=== PATIENT | male | born 1965 ===

== ENCOUNTER 2018-01-16 09:31 | Emergency (ER) | payer OTHER ==
[2018-01-16 10:06] VITALS: BMI 25.2
--- NOTE | 2018-01-16 10:54 | RAD ---
HISTORY: cough x 2 months COMPARISON: No prior. TECHNIQUE: Chest PA and lateral FINDINGS: LUNGS: Vague opacity projects vertically over right mid to upper lung zone and is seen anteriorly on the lateral view. Right pleural parenchymal calcification/disease inferred. Probable concomitant left upper-outer pleural parenchymal pathology also suggested. PLEURA: No significant pleural effusion identified. No pneumothorax apparent. CARDIOVASCULAR: Normal. OSSEOUS STRUCTURES: No significant abnormalities. VISUALIZED UPPER ABDOMEN: Normal. OTHER FINDINGS: None. IMPRESSION: Pleural-parenchymal pathology -as above. Consider CT of the chest for further evaluation would initially due without IV contrast - calcified pleural disease suspect
[2018-01-16 11:50] LABS: BASO # 0.1 K/uL (0.0-0.2); BASO % 0.8 % (0.0-2.0); EOS # 0.2 K/uL (0.0-0.7); EOS % 2.6 % (0.0-4.0); HEMOGLOBIN 9.6 g/dL (12.0-18.0); LYMPH # 2.1 K/uL (1.0-4.3); LYMPH % 30.9 % (20.0-40.0); MEAN CELL VOLUME 87.1 fl (80.0-94.0); MEAN CORPUSCULAR HEMOGLOBIN 29.3 pg (27.0-31.0); MEAN CORPUSCULAR HGB CONC 33.7 g/dL (33.0-37.0); MEAN PLATELET VOLUME 8.5 fl (7.2-11.7); MONO # 0.6 K/uL (0.0-0.8); MONO % 9.2 % (0.0-10.0); NEUT # 3.8 K/uL (1.8-7.0); NEUT % 56.5 % (50.0-75.0); RBC 3.27 Mil/uL (4.40-5.90); WHITE BLOOD COUNT 6.8 K/uL (4.8-10.8)
[2018-01-16 12:07] LABS: ALB/GLOB RATIO 0.8 (1.0-2.1); ALBUMIN 3.7 g/dL (3.5-5.0); ALT/SGPT 23 U/L (21-72); AST/SGOT 29 U/L (17-59); BLOOD UREA NITROGEN 12 mg/dl (9-20); CALCIUM 10.1 mg/dL (8.4-10.2); GFR AFRICAN-AMERICAN > 60; GFR NON-AFRICAN AMERICAN > 60; LIPASE 76 U/L (23-300)
--- NOTE | 2018-01-16 12:45 | ED PDOC ---
HPI: Abdomen Time Seen by Provider: 01/16/18 10:19 Chief Complaint (Nursing): Abdominal Pain Chief Complaint (Provider): Epigastric discomfort x 2 weeks History Per: Patient History/Exam Limitations: no limitations Onset/Duration Of Symptoms: Days Outside of [place] travel?: No Current Symptoms Are (Timing): Still Present Additional Complaint(s): 52 yo male with history of acute pancreatitis, HTN, DM and high cholesterol present for evaluation of epigastric pain for 2 weeks. Pt was admitted for acute pancreatitis at the end of October. Pt states that he is able to eat and drinking without N/V/D ut has no appetite. PT states he was in [place] but lives near here so he came to [place] for evaluation. PT states he does not have a PMD. PT also reports cough x 2 months, non-productive. Past Medical History Reviewed: Historical Data, Nursing Documentation, Vital Signs Vital Signs: Last Vital Signs Temp 97.9 F 01/16/18 10:06 Pulse 57 L 01/16/18 10:06 Resp 17 01/16/18 10:06 BP 102/68 01/16/18 10:06 Pulse Ox 96 01/16/18 13:44 - Medical History PMH: Diabetes, HTN, Pancreatitis - Surgical History Surgical History: No Surg Hx - Family History Family History: States: No Known Family Hx - Home Medications Home Medications: Ambulatory Orders Medication Instructions Recorded Ciprofloxacin [Cipro] 500 mg PO BID #10 tab 01/16/18 - Allergies Allergies/Adverse Reactions: Allergies Allergy/AdvReac Type Severity Reaction Status Date / Time No Known Allergies Allergy Verified 01/16/18 10:06 Review of Systems ROS Statement: Except As Marked, All Systems Reviewed And Found Negative Constitutional: Positive for: Fever (Intermittent subjective fever x 1 month ). Negative for: Chills Gastrointestinal: Positive for: Abdominal Pain. Negative for: Nausea, Vomiting , Diarrhea Neurological: Negative for: Weakness, Numbness Physical Exam - Reviewed Nursing Documentation Reviewed: Yes Vital Signs Reviewed: Yes - Physical Exam Appears: Positive for: Well, Non-toxic, No Acute Distress Head Exam: Positive for: ATRAUMATIC, NORMAL INSPECTION, NORMOCEPHALIC Skin: Positive for: Normal Color, Warm, DRY Eye Exam: Positive for: Normal appearance ENT: Positive for: Normal ENT Inspection Neck: Positive for: Normal, Painless ROM Cardiovascular/Chest: Positive for: Regular Rate, Rhythm Respiratory: Positive for: CNT, Normal Breath Sounds Gastrointestinal/Abdominal: Positive for: Normal Exam, Soft, Tenderness (Mild epigastric tenderness ). Negative for: Mass, Distended, Guarding, Rebound Back: Positive for: Normal Inspection Extremity: Positive for: Normal ROM Neurologic/Psych: Positive for: Alert, Oriented - Laboratory Results Result Diagrams: 01/16/18 11:31 01/16/18 11:31 - ECG O2 Sat by Pulse Oximetry: 96 Medical Decision Making Medical Decision Making: Urine (+) nitrites and leuks in urine. Blood cultures and IV antibiotics ordered. Disposition - Clinical Impression Clinical Impression: UTI (urinary tract infection) - Disposition Referrals: [facility] [Outside] Disposition: Routine/Home Disposition Time: 16:17 Condition: STABLE Prescriptions: Ciprofloxacin [Cipro] 500 mg PO BID #10 tab Instructions: Urinary Tract Infections in Adults Forms: [facility] (German)
[2018-01-16] MEDS ORDERED: cefTRIAXone (Rocephin) 1 gm Inj ONE (13:26)
[2018-01-16 13:47] LABS: SQUAMOUS EPITHIAL < 1 /hpf (0-5); URINE BACTERIA MOD (<OCC); URINE BILIRUBIN NEGATIVE (NEGATIVE); URINE BLOOD NEGATIVE (NEGATIVE); URINE CLARITY SLIGHTY-CLOUDY (Clear); URINE COLOR AMBER (YELLOW); URINE GLUCOSE (UA) NEG (Normal); URINE LEUKOCYTE ESTERASE MOD Leu/uL (Negative); URINE PROTEIN 30 mg/dL (NEGATIVE); URINE URIC ACID CRYSTALS RARE /hpf (<OCC); URINE UROBILINOGEN 0.2-1.0 mg/dL (0.2-1.0)
--- NOTE | 2018-01-16 15:05 | CT ---
PROCEDURE: CT Chest without contrast HISTORY: abdnormal CXR COMPARISON: None. TECHNIQUE: Contiguous axial images were obtained through the chest without intravenous contrast enhancement. Sagittal and coronal reconstructions were performed. Radiation dose (DLP): 256 mGy-cm. This CT exam was performed using one or more of the following dose reduction techniques: Automated exposure control, adjustment of the mA and/or kV according to patient size, and/or use of iterative reconstruction technique. FINDINGS: LUNGS: Bordering posterior inferior left-sided extensive calcified pleural plaque there is nodular subpleural 2.6 x 0.9 cm soft tissue opacity in this may represent scar/prior inflammatory etiology. Neoplastic etiology not excluded. Continued follow-up is advised. The patient has any outside CT studies ease to be helpful in assessing stability. MEDIASTINUM: Unremarkable thoracic aorta. No aneurysm. Normal sized heart. Main pulmonary artery unremarkable. No vascular congestion. No enlarged lymphadenopathy. 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 Left sub pleural based fibrotic like scarring with nodularity - the nodularity is referenced above is indeterminate and continued surveillance and or preferably comparison with prior studies is recommended to assess stability BONES: No fracture. No destructive lesion. UPPER ABDOMEN: Sliding hiatal hernia OTHER FINDINGS: None. IMPRESSION: Chest x-ray findings consistent with calcified pleural plaques -asbestosis exposure inferred. Left posterior lateral scarring/fibrosis also suggested where concomitant nodular component noted. This nodular component is indeterminate- prior inflammatory base is 1 consideration. Neoplastic bases not excluded. Continued surveillance is recommended. As detailed above
--- NOTE | 2018-01-16 16:07 | CARD ---
APPROVED REPORT EKG Measurement Heart [id number] <Conclusion> Sinus bradycardia Otherwise normal ECG
[2018-01-16 16:43] VITALS: BP 117/72; PULSE 72; RESP 18; TEMP 98.5; O2SAT 100
== END 2018-01-16 16:44 | disposition home or self-care (01) ==
LOC: H.ER 09:31
DX: N39.0 Urinary tract infection, site not specified (principal); E11.9 Type 2 diabetes mellitus without complications; I10 Essential (primary) hypertension; K85.90 Acute pancreatitis without necrosis or infection, unspecified
CPT/HCPCS: 71046; 71250; 80053; 81003; 83690; 84484; 85025; 87040; 87086; 87181; 93005; 96365; 99284; J0696

== ENCOUNTER 2018-02-12 12:38 | Inpatient (IN) | payer OTHER, SELFPAY ==
[2018-02-12 12:39] VITALS: BMI 25.2
[2018-02-12] MEDS ORDERED: Sodium Chloride 0.9% 1,000 ML IV STA (12:53)
--- NOTE | 2018-02-12 12:57 | ED PDOC ---
Syncope/Near Syncope/Dizziness Time Seen by Provider: 02/12/18 12:52 Chief Complaint (Nursing): Weakness/Neurological Deficit History Per: Patient, Other Onset/Duration Of Symptoms: Unknown Current Symptoms Are (Timing): Still Present Fall Associated With With Symptoms: No Severity: Moderate Additional Complaint(s): Referred from [facility] for generalized weakness. Found to have anemia on outpt testing. Also found to have abnormal CXR with concern for TB with positive Quantiferon test. Pt is from [facility] but has no other risk factors for TB. Denies night sweats, hemoptysis or sudden weight loss. Past Medical History Vital Signs: Last Vital Signs Temp 98.3 F 02/12/18 12:48 Pulse 68 02/12/18 12:48 Resp 16 02/12/18 12:48 BP 109/71 02/12/18 12:48 Pulse Ox 100 02/12/18 12:48 - Medical History PMH: Diabetes, HTN, Pancreatitis - Family History Family History: States: Unknown Family Hx - Home Medications Home Medications: Ambulatory Orders Medication Instructions Recorded Aspirin [Ecotrin] 81 mg PO DAILY 02/12/18 Atorvastatin [Lipitor] 40 mg PO HS 02/12/18 Gemfibrozil [Gemfibrozil] 600 mg PO BID 02/12/18 Insulin Glargine, Recombina 10 unit SC HS 02/12/18 [Lantus] Insulin Lispro [humALOG] 6 unit SC ACTID 02/12/18 Lipase/Protease/Amylase [Creon Dr 1 cap PO TID 02/12/18 6,000 Units Capsule] Metoprolol Tartrate [Lopressor] 50 mg PO Q12 02/12/18 Pantoprazole Sodium [Protonix] 40 mg PO DAILY 02/12/18 - Allergies Allergies/Adverse Reactions: Allergies Allergy/AdvReac Type Severity Reaction Status Date / Time No Known Allergies Allergy Verified 02/12/18 12:48 Review of Systems ROS Statement: Except As Marked, All Systems Reviewed And Found Negative Constitutional: Positive for: Weakness Physical Exam - Reviewed Nursing Documentation Reviewed: Yes Vital Signs Reviewed: Yes - Physical Exam Appears: Positive for: Non-toxic, No Acute Distress Head Exam: Positive for: ATRAUMATIC, NORMAL INSPECTION, NORMOCEPHALIC Skin: Positive for: Normal Color, Warm, DRY Eye Exam: Positive for: EOMI, Normal appearance, PERRL ENT: Positive for: Normal ENT Inspection Neck: Positive for: Normal, Painless ROM Cardiovascular/Chest: Positive for: Regular Rate, Rhythm Respiratory: Positive for: CNT, Normal Breath Sounds Gastrointestinal/Abdominal: Positive for: Normal Exam, Soft Back: Positive for: Normal Inspection Extremity: Positive for: Normal ROM Neurologic/Psych: Positive for: Alert, Oriented. Negative for: Motor/Sensory Deficits - ECG O2 Sat by Pulse Oximetry: 100 Disposition - Clinical Impression Clinical Impression: Anemia - Patient ED Disposition Is Patient to be Admitted: Yes - Disposition Disposition Time: 14:23 Condition: FAIR - Pt Status Changed To: Hospital Disposition Of: Inpatient - Admit Certification Admit to Inpatient:: After my assessment, the patient will require hospitalization for at least two midnights. This is because of the severity of symptoms shown, intensity of services needed, and/or the medical risk in this patient being treated as an outpatient. - POA Present On Arrival: None
[2018-02-12] MEDS ORDERED: Sodium Chloride 3% for Inhalation 4 ML VIAL.NEB IH PRN (13:42)
[2018-02-12] MEDS ORDERED: Iohexol 240 (50 ml) PO ONE (14:21)
[2018-02-12] MEDS ORDERED: Iohexol 240 (50 ml) ONE (14:29)
[2018-02-12 14:38] LABS: BASO % 0.2 % (0.0-2.0); EOS # 0.2 K/uL (0.0-0.7); EOS % 2.4 % (0.0-4.0); HEMOGLOBIN 9.6 g/dL (12.0-18.0); LYMPH # 1.4 K/uL (1.0-4.3); LYMPH % 19.9 % (20.0-40.0); MEAN CELL VOLUME 86.4 fl (80.0-94.0); MEAN CORPUSCULAR HEMOGLOBIN 28.6 pg (27.0-31.0); MEAN CORPUSCULAR HGB CONC 33.1 g/dL (33.0-37.0); MEAN PLATELET VOLUME 9.1 fl (7.2-11.7); MONO # 0.6 K/uL (0.0-0.8); MONO % 8.4 % (0.0-10.0); NEUT # 4.9 K/uL (1.8-7.0); NEUT % 69.1 % (50.0-75.0); NRBC % 0.1 % (0.0-0.0); RBC 3.35 Mil/uL (4.40-5.90); RED CELL DISTRIBUTION WIDTH 14.1 % (11.5-14.5)
--- NOTE | 2018-02-12 14:54 | CARD ---
APPROVED REPORT EKG Measurement Heart [id number] <Conclusion> Normal sinus rhythm Normal ECG
[2018-02-12 15:07] LABS: ALB/GLOB RATIO 0.9 (1.0-2.1); ALBUMIN 3.9 g/dL (3.5-5.0); ALT/SGPT 16 U/L (21-72); AST/SGOT 19 U/L (17-59); BLOOD UREA NITROGEN 16 mg/dl (9-20); GFR AFRICAN-AMERICAN > 60; GFR NON-AFRICAN AMERICAN > 60
--- NOTE | 2018-02-12 16:27 | RAD ---
HISTORY: r/o TB COMPARISON: 01/16/2018 two-view chest. 01/16/2018 CT thorax TECHNIQUE: Chest PA and lateral FINDINGS: LUNGS: No active pulmonary disease. PLEURA: No significant pleural effusion identified. No pneumothorax apparent. CARDIOVASCULAR: No radiographic findings to suggest acute or significant cardiovascular disease. OSSEOUS STRUCTURES: No significant abnormalities. VISUALIZED UPPER ABDOMEN: Normal. OTHER FINDINGS: None. IMPRESSION: No active disease. No evidence of primary or reactivation granulomatous disease. No significant interval change compared to the prior examination(s).
--- NOTE | 2018-02-12 16:28 | CP.PCM.HP ---
History of Present Illness - History of Present Illness History of Present Illness: cc: weakness and I don't have appetite. HPI: The patient is a 52 yo male with PMH of HTN, DM type 2 on insulin, Hyperlipidemia, Pancreatitis. The patient presents to the ED referred by [facility], where he has medical follow for his medical chronic conditions, the patient states he has been feeling very weak for the past approximately 2 months and went to the clinic where he had a CXR done concerning for possible TB, positive Quantiferon test and was found to have anemia. The patient states he was hospitalized in October in [facility] for a month, but he is a poor historian regarding that hospitalization and is unclear of the reason, states that he was at the hospital that time because he could no walk. He has been feeling weak for more than 2 months, c/o loss of Wt of approximately 60Lb in 2 to 3 months, also positive for occasional night sweats, poor appetite and dry cough some days , denies dyspnea or hemoptysis. The patient also c/o intermittent, unspecific diffuse mild abdominal, denies N/V/D, dysuria or urinary frequency. -PMD: [facility] -PMHx: DM, Pancreatitis, HTN, Hyperlipidemia. -Allergies: NKDA -Social Hx: Former smoker quit 20 years ago, alcohol (tequila) on weekends and states he has no drunk in 8 mo, mar[place] 20 years ago -Meds: Norvasc 5 po qd, Aspirin 81 qd, Atorvastatin 40 mg po qd, Genfibrozil 600 qd, Lispro insulin ss, Lantus-no taking, Metorprolol 25 po qd, Creon 6000/ 190 po q6h, Protonix 40 mg po qd. -FMHx: unknown to pt -PSx: None -Next of kin: Alejandra Apple [phone] -Code status: full code ED course: VS: BP 109/71, HR 68, Temp 98.3, RR 16, O2SAT RA 100% Labs: HIV test neg, CBC wbc 7.0, h/h 9.6/29, plt 175, CHem bs 128, BUN 16 creat 0.9 Imaging: CXR, Abdomen/pelvis CT with PO contrast Present on Admission - Present on Admission Any Indicators Present on Admission: No Review of Systems - Constitutional Constitutional: As Per HPI - EENT Eyes: As Per HPI Ears: As Per HPI Nose/Mouth/Throat: absent: Nasal Congestion, Nasal Discharge, Sinus Pain - Cardiovascular Cardiovascular: absent: Chest Pain, Dyspnea, Edema, Orthopnea, Palpitations - Respiratory Respiratory: As Per HPI - Gastrointestinal Gastrointestinal: As Per HPI - Genitourinary Genitourinary: As Per HPI - Musculoskeletal Musculoskeletal: Muscle Weakness, Neck Pain Additional comments: C/o neck pain in the past due to an accident while in the - Integumentary Integumentary: As Per HPI - Psychiatric Psychiatric: As Per HPI - Endocrine Endocrine: As Per HPI - Hematologic/Lymphatic Hematologic: As Per HPI Past Patient History - Past Social History Smoking Status: Never Smoked - CARDIAC Hx Hypertension: Yes - GASTROINTESTINAL Hx Pancreatitis: Yes - PSYCHIATRIC Hx Substance Use: No Meds Allergies/Adverse Reactions: Allergies Allergy/AdvReac Type Severity Reaction Status Date / Time No Known Allergies Allergy Verified 02/12/18 12:48 Physical Exam - Constitutional Appears: No Acute Distress - Head Exam Head Exam: NORMOCEPHALIC - Eye Exam Eye Exam: EOMI, PERRL - ENT Exam ENT Exam: Mucous Membranes Moist - Neck Exam Neck exam: Positive for: Full Rom. Negative for: Lymphadenopathy - Respiratory Exam Respiratory Exam: Clear to Auscultation Bilateral. absent: Chest Wall Tenderness, Rales, Rhonchi, Wheezes - Cardiovascular Exam Cardiovascular Exam: REGULAR RHYTHM, +S1, +S2. absent: JVD - GI/Abdominal Exam GI & Abdominal Exam: Normal Bowel Sounds, Soft. absent: Organomegaly Additional comments: 1 cm Scar noted on the left lower flank - Extremities Exam Extremities exam: Positive for: full ROM, pedal pulses present. Negative for: pedal edema, tenderness - Neurological Exam Neurological exam: Abnormal Gait, Alert, Oriented x3 Additional comments: Patient uses a cane to ambulate due to weakness Strength 3/5 in all 4 extremities - Psychiatric Exam Psychiatric exam: Normal Affect, Normal Mood - Skin Skin Exam: Normal Color, Warm Results - Vital Signs Recent Vital Signs: Last Vital Signs Temp 98.3 F 02/12/18 12:48 Pulse 68 02/12/18 12:48 Resp 16 02/12/18 12:48 BP 109/71 02/12/18 12:48 Pulse Ox 100 02/12/18 14:23 - Labs Result Diagrams: 02/12/18 14:30 02/12/18 14:30 Labs: Laboratory Results - last 24 hr 02/12/18 02/12/18 14:30 14:30 WBC 7.0 RBC 3.35 L Hgb 9.6 L Hct 29.0 L MCV 86.4 MCH 28.6 MCHC 33.1 RDW 14.1 Plt Count 175 MPV 9.1 Neut % (Auto) 69.1 Lymph % (Auto) 19.9 L Eaton % (Auto) 8.4 Eos % (Auto) 2.4 Baso % (Auto) 0.2 Neut # (Auto) 4.9 Lymph # (Auto) 1.4 Eaton # (Auto) 0.6 Eos # (Auto) 0.2 Baso # (Auto) 0.0 Sodium 141 Potassium 4.3 Chloride 106 Carbon Dioxide 25 Anion Gap 14 BUN 16 Creatinine 0.9 Est GFR ( Amer) > 60 Est GFR (Non-Af Amer) > 60 Random Glucose 128 H Calcium 10.0 Total Bilirubin 0.3 AST 19 ALT 16 L D Alkaline Phosphatase 95 Total Protein 8.5 H Albumin 3.9 Globulin 4.5 H Albumin/Globulin Ratio 0.9 L Assessment & Plan - Assessment and Plan (Free Text) Assessment: 52 yo male with PMH of DM type 2 on insulin, controlled HTN, HLD, and Pancreatitis, with new Hx of failure to thrive for more than 2 months, generalized weakness, Wt loss according to pt report of 60 pounds in 2 to 3 months, also anemia recently diagnosed at [facility] with CXR suggestive of possible TB and Pos Quantiferon Test. Decision is made to admit to the hospital for isolation of possible active TB and tx, eval of anemia, rule out possible malignancy. Plan: Possible TB -Respiratory airborne isolation -AFB x 3 -Sputum culture -CXR pending results Chronic Anemia -Hb 9.6 -anemia work-up, ferritin, TIBC, Serum irom, B12, folate, Sed rate -RPR DM type2 -Diabetic diet -Insulin Lispro SS -Atorvastin 40 po qd HLD -Atorvastatin -GEnfibrozil 600 po qd -Heart healthy Diet Hx of Chronic Pancreatitis -Creon 6000/09296 po with meals -lipase, amylase -pending Ct abdomen results HTN -Metoprolol 25 po qd -Aspirin 81 mg po qd -Heart healthy diet
[2018-02-12] MEDS ORDERED: Iohexol 300 100 ML IJ ONE (16:29)
[2018-02-12] MEDS ORDERED: Sodium Chloride 0.9% 100 ML ONE (16:29)
[2018-02-12] MEDS ORDERED: Glucagon Recombinant 1 mg Inj IM PRN (17:07)
[2018-02-12] MEDS ORDERED: Dextrose 50% SYRINGE Inj (50 ml) IV PRN (17:07)
--- NOTE | 2018-02-12 17:20 | CT ---
PROCEDURE: CT Abdomen and Pelvis with contrast HISTORY: Abdominal pain and anemia COMPARISON: None. TECHNIQUE: Contrast dose: 90 cc Omnipaque 300 Radiation dose: Total exam DLP = 489.62 mGy-cm. This CT exam was performed using one or more of the following dose reduction techniques: Automated exposure control, adjustment of the mA and/or kV according to patient size, and/or use of iterative reconstruction technique. FINDINGS: LOWER THORAX: Re- demonstration of pleural plaques, calcified indicative of prior asbestos exposure. These are seen on prior CT of the thorax 01/16/2018. Re- demonstration LIVER: Unremarkable. No gross lesion or ductal dilatation. GALLBLADDER AND BILE DUCTS: Unremarkable. PANCREAS: Cystic mass contiguous with the body and tail of the pancreas measuring 4.2 x 8.9 cm. Mean Hounsfield unit values vary between 35 and 55. In retrospect this was seen although incompletely visualized on the prior CT of the thorax including upper abdomen. Adjacent focal thickening of the wall of the stomach with possible mucosal/submucosal mass. Mean Hounsfield SPLEEN: Splenomegaly. Orthogonal measurements 11.4 x 16.8 x 5.4 cm. ADRENALS: Unremarkable. No mass. KIDNEYS AND URETERS: Unremarkable. No hydronephrosis. No solid mass. VASCULATURE: Unremarkable. No aortic aneurysm. BOWEL: Acute inflammatory changes affecting the distal descending colon and sigmoid with sparing of the rectum. The inflammatory changes in the sigmoid colon extending to the inguinal canal although there is no evidence of incarceration. APPENDIX: Normal appendix. PERITONEUM: Unremarkable. No free fluid. No free air. LYMPH NODES: Unremarkable. No enlarged lymph nodes. BLADDER: Unremarkable. REPRODUCTIVE: Unremarkable. BONES: No acute fracture. OTHER FINDINGS: Cystic mass, perinephric fluid collection interposed between the inferior aspect of the right kidney common the psoas muscle can't cecum. This measures 2.9 x 4.7 cm. Mean Hounsfield unit values vary between 26 and 39. None. IMPRESSION: 1. Acute sigmoid diverticulitis. The affected segment also includes the distal descending colon. Portions of the inflammatory process from the sigmoid extending into the left inguinal canal. 2. Well-circumscribed fluid/soft tissue mass likely emanating from the distal body and tail of the pancreas contiguous with the splenic vein. 3. An additional low-attenuation area in the left upper quadrant is either invading the stomach or originating from the stomach. 4. Retroperitoneal fluid collections/soft tissue mass adjacent to the inferior aspect of the right kidney. These fluid collections may represent well-formed pseudocyst. There is no compelling evidence for acute or necrotizing pancreatitis.
[2018-02-12 18:15] LABS: IRON 34 ug/dL (49-181)
[2018-02-12 18:24] LABS: % IRON SATURATION 13 % (20-55); TOTAL IRON BINDING CAPACITY 263 ug/dL (250-450)
[2018-02-12] MEDS ORDERED: metroNIDAZOLE 500mg/100ml NS 100 ML IVPB SCH (18:45)
[2018-02-12] MEDS ORDERED: Ciprofloxacin 400mg/200ml D5W 400 MG/200 ML BAG IVPB ONE (21:10)
[2018-02-12] MEDS: Ciprofloxacin 400mg/200ml D5W 400 MG/200 ML BAG IVPB SCH (21:17)
[2018-02-12] MEDS: Insulin Lispro (humaLOG) 100 Units/ml Inj SC SCH (23:42)
[2018-02-12] MEDS: Insulin Detemir 100 Units/ml Inj SC SCH (23:53)
[2018-02-13 01:57] LABS: FOLATE 15.1 ng/mL
[2018-02-13] MEDS: Insulin Lispro (humaLOG) 100 Units/ml Inj SC SCH ×7 (06:51→23:04)
[2018-02-13] MEDS ORDERED: Chlorhexidine Gluconate 1 APPL/PKT TP ONE (07:13)
--- NOTE | 2018-02-13 07:57 | CP.PCM.CON ---
<Shayna Angeles - Last Filed: 02/13/18 15:03> History of Present Illness - History of Present Illness History of Present Illness: Initial PGY5 GI Consult Note Brandan Lemon is a 52 yo male with PMH of HTN, DM type 2 on insulin, Hyperlipidemia , Pancreatitis? who presented to the ED referred by [facility] for his medical chronic conditions including weakness weakness, fatigue and weightloss. Pt is a poor historian. He notes that for the past 2-3 months is has been progressively weak. He went to the clinic where he had a CXR done concerning for possible TB. He also had a positive Quantiferon test. His CBC revealed a hgb of 9.6. The patient states he was hospitalized in October in [place] for a month, but he is a poor historian regarding that hospitalization and is unclear of the reason. He notes that he was in the hospital for 40days ad as a result was severely debilitated. He notes a 60lb weight loss during this period. He admits to intermittent rectal bleeding, associated with him straining and having hard stool. he notes that the blood is usually outside of the stool and upon wiping. He denies any NSAID use. Denies any nausea, vomiting, diarrhea, hematachezia, or melena. Denies any prior colonoscopy or endoscopy. CT Abd revealed a pancreatic mass in the body and tail with apparent invasion into the splenic vein, acute sigmoid diverticulitis, possible pseudocyst. PMHx: DM, Pancreatitis?, HTN, Hyperlipidemia. Social Hx: Former smoker quit 20 years ago, alcohol (tequila) on weekends and states he has no drunk in 8 mo, marihuana 20 years ago FMHx: unknown to pt PSx: None ROS: 12 point ROS conducted, neg other than above Past Patient History - Past Social History Smoking Status: Former Smoker - CARDIAC Hx Cardiac Disorders: Yes Hx Hypercholesterolemia: Yes Hx Hypertension: Yes - PULMONARY Hx Respiratory Disorders: No - NEUROLOGICAL Hx Neurological Disorder: No - HEENT Hx HEENT Problems: No - RENAL Hx Chronic Kidney Disease: No - ENDOCRINE/METABOLIC Hx Endocrine Disorders: Yes Hx Diabetes Mellitus Type 2: Yes - HEMATOLOGICAL/ONCOLOGICAL Hx Blood Disorders: (pancreatitis) - INTEGUMENTARY Hx Dermatological Problems: No - MUSCULOSKELETAL/RHEUMATOLOGICAL Hx Falls: No - GASTROINTESTINAL Hx Pancreatitis: Yes - GENITOURINARY/GYNECOLOGICAL Hx Genitourinary Disorders: No - PSYCHIATRIC Hx Substance Use: No - ANESTHESIA Hx Anesthesia: No Meds Allergies/Adverse Reactions: Allergies Allergy/AdvReac Type Severity Reaction Status Date / Time No Known Allergies Allergy Verified 02/12/18 12:48 - Medications Medications: Current Medications Amylase (Pancrease 23330 U-5000 U-74073 U) 5,000 unit PO TID [facility] Aspirin (Ecotrin) 81 mg PO DAILY [facility] Atorvastatin Calcium (Lipitor) 40 mg PO HS [facility] Dextrose (Dextrose 50% Inj) 0 ml IV STAT PRN; Protocol PRN Reason: Hypoglycemia Protocol Dextrose (Glutose 15) 0 gm PO ONCE PRN; Protocol PRN Reason: Hypoglycemia Protocol Gemfibrozil (Lopid) 600 mg PO BID [facility] Glucagon (Glucagen Diagnostic Kit) 0 mg IM STAT PRN; Protocol PRN Reason: Hypoglycemia Protocol Ciprofloxacin (Cipro 400mg/200ml Dsw) 400 mg in 200 mls @ 200 mls/hr IVPB Q12 [facility] PRN Reason: Protocol Last Admin: 02/12/18 21:17 Dose: 200 mls/hr Dextrose/Sodium Chloride (Dextrose 5%-0.45% Ns 500 Ml) 1,000 mls @ 100 mls/hr IV .Q10H [facility] Last Admin: 02/13/18 00:19 Dose: 100 mls/hr Insulin Detemir (Levemir) 10 units SC HS [facility] Last Admin: 02/12/18 23:53 Dose: 10 units Insulin Human Lispro (Humalog) 6 units SC ACTID [facility] Insulin Human Lispro (Humalog) 0 units SC ACHS [facility] PRN Reason: Protocol Last Admin: 02/13/18 06:51 Dose: Not Given Metoprolol Tartrate (Lopressor) 50 mg PO Q12 [facility] Last Admin: 02/12/18 21:16 Dose: 50 mg Metronidazole (Flagyl) 500 mg PO Q8 [facility] Last Admin: 02/13/18 01:49 Dose: 500 mg Ondansetron HCl (Zofran Inj) 4 mg IVP Q6 PRN PRN Reason: Nausea/Vomiting Pantoprazole Sodium (Protonix Ec Tab) 40 mg PO DAILY [facility] Physical Exam - Constitutional Appears: Well, No Acute Distress - Head Exam Head Exam: ATRAUMATIC, NORMOCEPHALIC - Eye Exam Eye Exam: Normal appearance - ENT Exam ENT Exam: Mucous Membranes Moist - Neck Exam Neck exam: Positive for: Normal Inspection - Respiratory Exam Respiratory Exam: Clear to Auscultation Bilateral, NORMAL BREATHING PATTERN. absent: Rales, Rhonchi, Wheezes, Respiratory Distress - Cardiovascular Exam Cardiovascular Exam: REGULAR RHYTHM, +S1, +S2 - GI/Abdominal Exam GI & Abdominal Exam: Normal Bowel Sounds, Soft. absent: Distended, Firm, Guarding, Organomegaly, Rebound, Rigid, Tenderness - Rectal Exam Rectal Exam: absent: Black Stool, Bloody Stool Additional comments: ext skin tag, old decub scar (healed), brown stool in rectal vault - Extremities Exam Extremities exam: Negative for: joint swelling, pedal edema - Neurological Exam Neurological exam: Alert, Oriented x3 - Psychiatric Exam Psychiatric exam: Normal Affect, Normal Mood - Skin Skin Exam: Dry, Intact, Normal Color, Warm Results - Vital Signs Recent Vital Signs: Last Vital Signs Temp 97.7 F 02/13/18 05:00 Pulse 57 L 02/13/18 05:00 Resp 20 02/13/18 05:00 BP 103/66 02/13/18 05:00 Pulse Ox 99 02/13/18 05:00 - Labs Result Diagrams: 02/12/18 14:30 02/12/18 14:30 Labs: Laboratory Results - last 24 hr 02/12/18 02/12/18 02/12/18 14:30 14:30 17:30 WBC 7.0 RBC 3.35 L Hgb 9.6 L Hct 29.0 L MCV 86.4 MCH 28.6 MCHC 33.1 RDW 14.1 Plt Count 175 MPV 9.1 Neut % (Auto) 69.1 Lymph % (Auto) 19.9 L [place] % (Auto) 8.4 Eos % (Auto) 2.4 Baso % (Auto) 0.2 Neut # (Auto) 4.9 Lymph # (Auto) 1.4 [place] # (Auto) 0.6 Eos # (Auto) 0.2 Baso # (Auto) 0.0 ESR 96 H Sodium 141 Potassium 4.3 Chloride 106 Carbon Dioxide 25 Anion Gap 14 BUN 16 Creatinine 0.9 Est GFR ( Amer) > 60 Est GFR (Non-Af Amer) > 60 POC Glucose (mg/dL) Random Glucose 128 H Calcium 10.0 Iron TIBC % Saturation Ferritin Total Bilirubin 0.3 AST 19 ALT 16 L D Alkaline Phosphatase 95 Total Protein 8.5 H Albumin 3.9 Globulin 4.5 H Albumin/Globulin Ratio 0.9 L Amylase Lipase Carcinoembryonic Ag Vitamin B12 Folate RPR 02/12/18 02/12/18 02/12/18 17:30 17:30 17:30 WBC RBC Hgb Hct MCV MCH MCHC RDW Plt Count MPV Neut % (Auto) Lymph % (Auto) [place] % (Auto) Eos % (Auto) Baso % (Auto) Neut # (Auto) Lymph # (Auto) [place] # (Auto) Eos # (Auto) Baso # (Auto) ESR Sodium Potassium Chloride Carbon Dioxide Anion Gap BUN Creatinine Est GFR ( Amer) Est GFR (Non-Af Amer) POC Glucose (mg/dL) Random Glucose Calcium Iron 34 L TIBC 263 % Saturation 13 L Ferritin 427.0 Total Bilirubin AST ALT Alkaline Phosphatase Total Protein Albumin Globulin Albumin/Globulin Ratio Amylase 41 Lipase 50 Carcinoembryonic Ag Vitamin B12 771 Folate 15.1 RPR Nonreactive 02/12/18 02/12/18 02/12/18 17:47 19:20 23:32 WBC RBC Hgb Hct MCV MCH MCHC RDW Plt Count MPV Neut % (Auto) Lymph % (Auto) [place] % (Auto) Eos % (Auto) Baso % (Auto) Neut # (Auto) Lymph # (Auto) [place] # (Auto) Eos # (Auto) Baso # (Auto) ESR Sodium Potassium Chloride Carbon Dioxide Anion Gap BUN Creatinine Est GFR ( Amer) Est GFR (Non-Af Amer) POC Glucose (mg/dL) 123 H 130 H Random Glucose Calcium Iron TIBC % Saturation Ferritin Total Bilirubin AST ALT Alkaline Phosphatase Total Protein Albumin Globulin Albumin/Globulin Ratio Amylase Lipase Carcinoembryonic Ag 1.1 Vitamin B12 Folate RPR 02/13/18 05:44 WBC RBC Hgb Hct MCV MCH MCHC RDW Plt Count MPV Neut % (Auto) Lymph % (Auto) [place] % (Auto) Eos % (Auto) Baso % (Auto) Neut # (Auto) Lymph # (Auto) [place] # (Auto) Eos # (Auto) Baso # (Auto) ESR Sodium Potassium Chloride Carbon Dioxide Anion Gap BUN Creatinine Est GFR ( Amer) Est GFR (Non-Af Amer) POC Glucose (mg/dL) 109 Random Glucose Calcium Iron TIBC % Saturation Ferritin Total Bilirubin AST ALT Alkaline Phosphatase Total Protein Albumin Globulin Albumin/Globulin Ratio Amylase Lipase Carcinoembryonic Ag Vitamin B12 Folate RPR Assessment & Plan - Assessment and Plan (Free Text) Assessment: Brandan Lemon is a 52M w/ hx of HTN, DM type 2 on insulin, Hyperlipidemia, Pancreatitis? 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 r/o TB Plan: -transfuse if hgb < 7 -no active bleeding -recommend pancreas protocol CT -recommend IR guided biopsy -will need eval of pancreatic mass -start cipro and flagyl for acute diverticulitis -okay to start clears -will determine next course of action based on histology of pancreatic mass D/W Dr. Bruno <Wendie Bruno - Last Filed: 02/13/18 15:52> Meds - Medications Medications: Current Medications Amylase (Pancrease 34615 U-5000 U-11025 U) 5,000 unit PO TID [facility] Last Admin: 02/13/18 13:04 Dose: 5,000 unit Aspirin (Ecotrin) 81 mg PO DAILY [facility] Last Admin: 02/13/18 08:36 Dose: 81 mg Atorvastatin Calcium (Lipitor) 40 mg PO HS [facility] Dextrose (Dextrose 50% Inj) 0 ml IV STAT PRN; Protocol PRN Reason: Hypoglycemia Protocol Dextrose (Glutose 15) 0 gm PO ONCE PRN; Protocol PRN Reason: Hypoglycemia Protocol Enoxaparin Sodium (Lovenox) 40 mg SC DAILY [facility] PRN Reason: Protocol Gemfibrozil (Lopid) 600 mg PO BID [facility] Last Admin: 02/13/18 08:36 Dose: 600 mg Glucagon (Glucagen Diagnostic Kit) 0 mg IM STAT PRN; Protocol PRN Reason: Hypoglycemia Protocol Ciprofloxacin (Cipro 400mg/200ml Dsw) 400 mg in 200 mls @ 200 mls/hr IVPB Q12 [facility] PRN Reason: Protocol Last Admin: 02/13/18 10:05 Dose: 200 mls/hr Dextrose/Sodium Chloride (Dextrose 5%-0.45% Ns 500 Ml) 1,000 mls @ 100 mls/hr IV .Q10H [facility] Last Admin: 02/13/18 10:54 Dose: Not Given Insulin Detemir (Levemir) 10 units SC HS [facility] Last Admin: 02/12/18 23:53 Dose: 10 units Insulin Human Lispro (Humalog) 6 units SC ACTID [facility] Last Admin: 02/13/18 13:03 Dose: Not Given Insulin Human Lispro (Humalog) 0 units SC ACHS [facility] PRN Reason: Protocol Last Admin: 02/13/18 13:03 Dose: Not Given Metoprolol Tartrate (Lopressor) 50 mg PO Q12 [facility] Last Admin: 02/13/18 08:37 Dose: Not Given Metronidazole (Flagyl) 500 mg PO Q8 [facility] Last Admin: 02/13/18 08:36 Dose: 500 mg Ondansetron HCl (Zofran Inj) 4 mg IVP Q6 PRN PRN Reason: Nausea/Vomiting Pantoprazole Sodium (Protonix Ec Tab) 40 mg PO DAILY [facility] Last Admin: 02/13/18 08:36 Dose: 40 mg Results - Vital Signs Recent Vital Signs: Last Vital Signs Temp 97.5 F L 02/13/18 13:00 Pulse 57 L 02/13/18 13:00 Resp 18 02/13/18 13:00 BP 105/73 02/13/18 13:00 Pulse Ox 100 02/13/18 13:00 - Labs Result Diagrams: 02/12/18 14:30 02/12/18 14:30 Labs: Laboratory Results - last 24 hr 02/12/18 02/12/18 02/12/18 17:30 17:30 17:30 ESR 96 H POC Glucose (mg/dL) Iron 34 L TIBC 263 % Saturation 13 L Ferritin 427.0 Amylase 41 Lipase 50 Carcinoembryonic Ag Vitamin B12 771 Folate 15.1 RPR 02/12/18 02/12/18 02/12/18 17:30 17:47 19:20 ESR POC Glucose (mg/dL) 123 H Iron TIBC % Saturation Ferritin Amylase Lipase Carcinoembryonic Ag 1.1 Vitamin B12 Folate RPR Nonreactive 02/12/18 02/13/18 23:32 05:44 ESR POC Glucose (mg/dL) 130 H 109 Iron TIBC % Saturation Ferritin Amylase Lipase Carcinoembryonic Ag Vitamin B12 Folate RPR Attending/Attestation - Attestation I have personally seen and examined this patient.: Yes I have fully participated in the care of the patient.: Yes I have reviewed all pertinent clinical information: Yes Notes (Text): 02/13/18 15:41 This is a 52 yr old M with history of HTN, DM type 2 on insulin, Hyperlipidemia , alcohol abuse, history of pancreatitis who presented to the ER after being referred from [facility] for weakness, anemia, possible TB, and weight loss. He was found to have pancreatic mass in body and tail on IV contrast CT. Mass maybe psudocyst vs malignancy but no calcifications seen. Will send CEA levels. May benefit from IR guided biopsy vs aspiration. EUS is no longer available and hence can be referred to outpatient academic center. Weight loss maybe due to inability to eat due to the displacement of duodenum. Sigmoid non complicated diverticulitis. Continue antibiotics. Clear liquid diet
[2018-02-13] MEDS: Pantoprazole 40 mg EC Tab PO SCH (08:36)
[2018-02-13] MEDS: Amylase/Lipase/Protease 5,000 Units ECC PO SCH ×3 (08:36→16:58)
[2018-02-13] MEDS: Ciprofloxacin 400mg/200ml D5W 400 MG/200 ML BAG IVPB SCH ×2 (10:05→23:00)
[2018-02-13] MEDS ORDERED: Iodixanol 320 MG/ML 100 ML BOTTLE IV ONE (10:09)
[2018-02-13] MEDS ORDERED: Sodium Chloride 0.9% 100 ML ONE (10:09)
--- NOTE | 2018-02-13 10:09 | CP.PCM.PN ---
Subjective - Date & Time of Evaluation Date of Evaluation: 02/13/18 Time of Evaluation: 08:25 - Subjective Subjective: Patient seen and examined today at bedside, is in respiratory isolation for possible active TB, NAD, patient brings c/o left testicular discomfort, states that he has no pain now but occasional feels discomfort on his left testicle, denies SOB, cough, Chest pain, abdominal pain, N/V/D, chills or fever. Objective - Vital Signs/Intake and Output Vital Signs (last 24 hours): Temp Pulse Resp BP Pulse Ox 97.5 F L 52 L 20 103/67 100 02/13/18 08:19 02/13/18 08:37 02/13/18 08:19 02/13/18 08:37 02/13/18 08:19 - Medications Medications: Current Medications Amylase (Pancrease 57283 U-5000 U-65352 U) 5,000 unit PO TID [facility] Last Admin: 02/13/18 08:36 Dose: 5,000 unit Aspirin (Ecotrin) 81 mg PO DAILY [facility] Last Admin: 02/13/18 08:36 Dose: 81 mg Atorvastatin Calcium (Lipitor) 40 mg PO [facility] Dextrose (Dextrose 50% Inj) 0 ml IV STAT PRN; Protocol PRN Reason: Hypoglycemia Protocol Dextrose (Glutose 15) 0 gm PO ONCE PRN; Protocol PRN Reason: Hypoglycemia Protocol Gemfibrozil (Lopid) 600 mg PO BID [facility] Last Admin: 02/13/18 08:36 Dose: 600 mg Glucagon (Glucagen Diagnostic Kit) 0 mg IM STAT PRN; Protocol PRN Reason: Hypoglycemia Protocol Ciprofloxacin (Cipro 400mg/200ml Dsw) 400 mg in 200 mls @ 200 mls/hr IVPB Q12 [facility] PRN Reason: Protocol Last Admin: 02/12/18 21:17 Dose: 200 mls/hr Dextrose/Sodium Chloride (Dextrose 5%-0.45% Ns 500 Ml) 1,000 mls @ 100 mls/hr IV .Q10H [facility] Last Admin: 02/13/18 00:19 Dose: 100 mls/hr Insulin Detemir (Levemir) 10 units SC HS [facility] Last Admin: 02/12/18 23:53 Dose: 10 units Insulin Human Lispro (Humalog) 6 units SC ACTID [facility] Last Admin: 07/04/18 08:37 Dose: Not Given Insulin Human Lispro (Humalog) 0 units SC ACHS [facility] PRN Reason: Protocol Last Admin: 02/13/18 06:51 Dose: Not Given Metoprolol Tartrate (Lopressor) 50 mg PO Q12 [facility] Last Admin: 02/13/18 08:37 Dose: Not Given Metronidazole (Flagyl) 500 mg PO Q8 [facility] Last Admin: 02/13/18 08:36 Dose: 500 mg Ondansetron HCl (Zofran Inj) 4 mg IVP Q6 PRN PRN Reason: Nausea/Vomiting Pantoprazole Sodium (Protonix Ec Tab) 40 mg PO DAILY [facility] Last Admin: 02/13/18 08:36 Dose: 40 mg - Labs Labs: 02/12/18 14:30 02/12/18 14:30 - Constitutional Appears: No Acute Distress - Head Exam Head Exam: NORMOCEPHALIC - Eye Exam Eye Exam: Normal appearance, PERRL - ENT Exam ENT Exam: Mucous Membranes Moist - Neck Exam Neck Exam: Full ROM. absent: Lymphadenopathy - Respiratory Exam Respiratory Exam: Clear to Ausculation Bilateral. absent: Rales, Rhonchi, Wheezes - Cardiovascular Exam Cardiovascular Exam: REGULAR RHYTHM, +S1, +S2. absent: JVD - GI/Abdominal Exam GI & Abdominal Exam: Soft, Tenderness, Hypoactive Bowel Sounds Additional comments: mild tenderness to deep palpation on Left flank and LLQ - Extremities Exam Extremities Exam: absent: Pedal Edema - Neurological Exam Neurological Exam: Alert, Awake, Oriented x3 Additional comments: Gait with cane - Psychiatric Exam Psychiatric exam: Normal Affect, Normal Mood - Skin Skin Exam: Pallor, Warm Additional comments: there are some chronic hypopigmentantion and mottle skin noted on LE Assessment and Plan - Assessment and Plan (Free Text) Assessment: -52 yo male with PMH of DM type 2 on insulin, controlled HTN, HLD, and Pancreatitis, Hx of failure to thrive, generalized weakness, Wt loss according to pt report, and anemia, patient was admitted yesterday after pos Quantiferon done at [facility], CXR report negative, AFB sputum ordered x3 pending completion. Ct scan of abdomen and pelvis done showed impression: -Acute sigmoid diverticulitis ,-well cincunscribed fluid/soft mass of pancreatic body and tail contiguos with the splenic vein,-an additional low-attenuation area in the left upper quadrant is either invading the stomach or originating from the stomach,-retroperitoneal fluid collection/soft tissue mass adjacent to the inferior aspect of the right kidney. GI consult on board. Plan: Pancreatic mass -GI consulted-Pancreas CT performed pending results -IR for Pancreas mass Bx tomorrow -NPO Sigmoid Diverticulitis -w/c antibx Flagyl, cipro Possible TB -Respiratory airborne isolation -AFB x 3 -Sputum culture -CXR done negative Chronic Anemia/Possibly Anemia of chronic Dz -stable -Hb 9.6 -anemia work-up, ferritin 427, TIBC 263, Serum irom 34, B12 771, folate 15.1, Sed rate 96 -RPR neg DM type2 -Diabetic diet -Insulin Lispro SS -Atorvastin 40 po qd HLD -Atorvastatin -GEnfibrozil 600 po qd -Heart healthy Diet Hx of Chronic Pancreatitis -Creon 6000/76132 po with meals -lipase, amylase -GI consulted HTN -Metoprolol 25 po qd -Aspirin 81 mg po qd DVT ppx -Lovenox 40 sc qd
--- NOTE | 2018-02-13 11:25 | US ---
HISTORY: L testicular pain/swelling TECHNIQUE: Realtime sonography through the scrotum with color and doppler flow. COMPARISON: None Available. FINDINGS: RIGHT TESTICLE: Measures 4 x 1.5 x 2.5 cm. Normal echotexture and flow. RIGHT EPIDIDYMIS: Epididymal head measures 0.8 x 0.5 x 0.5 cm. Grossly unremarkable appearance with normal flow. LEFT TESTICLE: Measures 3.7 x 1.2 x 2 cm. Normal echotexture and flow. LEFT EPIDIDYMIS: Epididymal head measures 0.7 x 0.7 x 0.8 cm. Grossly unremarkable appearance with normal flow. HYDROCELE: None. VARICOCELE: None. OTHER FINDINGS: Left epididymal cyst measuring 3 millimeters noted. IMPRESSION: No evidence of acute torsion at the time of evaluation. Small epididymal cyst.
--- NOTE | 2018-02-13 13:20 | CT ---
PROCEDURE: CT Abdomen and Pelvis with contrast HISTORY: pancreatic mass COMPARISON: None. TECHNIQUE: Contrast dose: 99cc of Visipaque 320 Radiation dose: Total exam DLP = mGy-cm. This CT exam was performed using one or more of the following dose reduction techniques: Automated exposure control, adjustment of the mA and/or kV according to patient size, and/or use of iterative reconstruction technique. FINDINGS: LOWER THORAX: Calcified pleural plaques noted bilaterally. Calcified granuloma noted in the right middle lobe. Nodular noted in the left lower lobe. The largest of those measures approximately 1.1 centimeters. LIVER: Unremarkable. No gross lesion or ductal dilatation. GALLBLADDER AND BILE DUCTS: Unremarkable. PANCREAS: Re- demonstration of a mass in the tail of the pancreas measuring 3.7 x 5.6 x 5.2 centimeters. On the noncontrast images, this lesion demonstrates mildly heterogeneous densities internal and. The internal attenuation is approximately 30 Hounsfield units. On the arterial phase images, the internal attenuation increases to approximately 48 Hounsfield units. On corresponding venous phase images, the internal Hounsfield units increases to approximately 70 Hounsfield units. Hence, this is an enhancing complex lesion. Based on venous phase images, the internal architecture of the structure is not clearly delineated. However, this lesion demonstrates variable enhancement which is best demonstrated on image 61, series 7. No significant. Lesion of inflammatory stranding identified. This lesion is anterior to the left kidney and medial to the splenic hilum. The splenic artery courses superior to this lesion. The splenic vein courses along cranial aspect of the lesion. No significant pancreatic ductal dilatation. No significant peripancreatic inflammatory stranding. Additionally, the pancreatic head appears bulky and also demonstrates heterogeneous enhancement. SPLEEN: Unremarkable. ADRENALS: Unremarkable. No mass. KIDNEYS AND URETERS: Unremarkable. No hydronephrosis. No solid mass. VASCULATURE: Unremarkable. No aortic aneurysm. BOWEL: Incompletely visualized. Focal mass along the greater curvature of the stomach extending into the lumen is not clearly seen on the current evaluation due to no oral contrast within the stomach. Oral contrast is seen within the colon which demonstrates diverticulosis involving the sigmoid colon. Inflammatory changes within the left inguinal canal. No focal fluid collection. APPENDIX: Partially visualized appendix appears unremarkable. PERITONEUM: Unremarkable. No free fluid. No free air. LYMPH NODES: Unremarkable. No enlarged lymph nodes. BLADDER: Collapsed bladder. REPRODUCTIVE: Unremarkable. BONES: No acute fracture. OTHER FINDINGS: Slightly complex cystic structure measuring 3 x 3 x 2.5 centimeter inferior to the right kidney and indistinguishable from the loop of small bowel (distal ileum) is once again seen. This structure demonstrates mild enhancement in the venous phase and is best seen on series 5, image 85 with the internal enhancement is approximately 48 Hounsfield units. IMPRESSION: Complex pancreatic tail mass appears to be heterogeneously enhancing. The internal architecture of this mass remains unclear. No calcifications seen. A serous cystic lesion can be considered. Additionally, a bulky heterogeneous appearance of the pancreatic head is also noted. MRI of the pancreas with multi phase contrast enhancement recommended for better tissue spatial resolution. Cystic structure measuring 3 x 3 x 2.5 centimeter inferior to the right kidney and indistinguishable from a loop of distal small bowel is once again seen. This structure also demonstrates enhancement in venous phase imaging. Sigmoid diverticulitis with inflammation extending into the left inguinal canal. Other findings as above.
[2018-02-13 22:14] LABS: INR 1.2 (0.9-1.2); PARTIAL THROMBOPLASTIN TIME 32.9 Seconds (25.6-37.1); PROTHROMBIN TIME 13.5 Seconds (9.8-13.1)
[2018-02-13] MEDS: Enoxaparin 40 mg Syringe SC SCH (23:01)
[2018-02-13] MEDS: Insulin Detemir 100 Units/ml Inj SC SCH (23:03)
[2018-02-14 05:29] LABS: HEMOGLOBIN 8.7 g/dL (12.0-18.0); MEAN CELL VOLUME 86.6 fl (80.0-94.0); MEAN CORPUSCULAR HEMOGLOBIN 28.7 pg (27.0-31.0); MEAN CORPUSCULAR HGB CONC 33.2 g/dL (33.0-37.0); RBC 3.04 Mil/uL (4.40-5.90); RED CELL DISTRIBUTION WIDTH 13.8 % (11.5-14.5)
[2018-02-14 06:13] LABS: ALB/GLOB RATIO 0.9 (1.0-2.1); ALBUMIN 3.3 g/dL (3.5-5.0); ALT/SGPT 16 U/L (21-72); AST/SGOT 18 U/L (17-59); BLOOD UREA NITROGEN 8 mg/dl (9-20); CALCIUM 9.5 mg/dL (8.4-10.2); GFR AFRICAN-AMERICAN > 60; GFR NON-AFRICAN AMERICAN > 60
--- NOTE | 2018-02-14 08:13 | CP.PCM.PN ---
<Shayna Angeles - Last Filed: 02/14/18 09:43> Subjective - Date & Time of Evaluation Date of Evaluation: 02/14/18 Time of Evaluation: 08:00 - Subjective Subjective: PGY5 GI follow-up Pt seen and examined bedside Denies any abd pain Denies any BRBPR Denies any BM tolerated diet yesterday ROS: 12 point ROS conducted, neg other than above Objective - Vital Signs/Intake and Output Vital Signs (last 24 hours): Temp Pulse Resp BP Pulse Ox 97.6 F 59 L 18 101/62 100 02/14/18 05:00 02/14/18 05:00 02/14/18 05:00 02/14/18 05:00 02/14/18 05:00 - Medications Medications: Current Medications Amylase (Pancrease 59717 U-5000 U-70528 U) 5,000 unit PO TID [facility] Last Admin: 02/13/18 16:58 Dose: 5,000 unit Aspirin (Ecotrin) 81 mg PO DAILY [facility] Last Admin: 02/13/18 08:36 Dose: 81 mg Atorvastatin Calcium (Lipitor) 40 mg PO HS [facility] Last Admin: 02/13/18 23:02 Dose: 40 mg Dextrose (Dextrose 50% Inj) 0 ml IV STAT PRN; Protocol PRN Reason: Hypoglycemia Protocol Dextrose (Glutose 15) 0 gm PO ONCE PRN; Protocol PRN Reason: Hypoglycemia Protocol Enoxaparin Sodium (Lovenox) 40 mg SC DAILY [facility] PRN Reason: Protocol Last Admin: 02/13/18 23:01 Dose: 40 mg Gemfibrozil (Lopid) 600 mg PO BID [facility] Last Admin: 02/13/18 16:58 Dose: 600 mg Glucagon (Glucagen Diagnostic Kit) 0 mg IM STAT PRN; Protocol PRN Reason: Hypoglycemia Protocol Ciprofloxacin (Cipro 400mg/200ml Dsw) 400 mg in 200 mls @ 200 mls/hr IVPB Q12 [facility] PRN Reason: Protocol Last Admin: 02/13/18 23:00 Dose: 200 mls/hr Dextrose/Sodium Chloride (Dextrose 5%-0.45% Ns 500 Ml) 1,000 mls @ 100 mls/hr IV .Q10H [facility] Last Admin: 02/14/18 06:34 Dose: 100 mls/hr Insulin Detemir (Levemir) 10 units SC [facility] Last Admin: 02/13/18 23:03 Dose: 10 units Insulin Human Lispro (Humalog) 6 units SC ACTID [facility] Last Admin: 02/13/18 16:57 Dose: Not Given Insulin Human Lispro (Humalog) 0 units SC ACHS [facility] PRN Reason: Protocol Last Admin: 02/13/18 23:04 Dose: Not Given Metoprolol Tartrate (Lopressor) 50 mg PO Q12 [facility] Last Admin: 02/13/18 23:02 Dose: Not Given Metronidazole (Flagyl) 500 mg PO Q8 [facility] Last Admin: 02/14/18 01:13 Dose: 500 mg Ondansetron HCl (Zofran Inj) 4 mg IVP Q6 PRN PRN Reason: Nausea/Vomiting Pantoprazole Sodium (Protonix Ec Tab) 40 mg PO DAILY [facility] Last Admin: 02/13/18 08:36 Dose: 40 mg - Labs Labs: 02/14/18 05:00 02/14/18 05:00 PT 13.5 Seconds (9.8-13.1) H 02/13/18 21:00 INR 1.2 (0.9-1.2) 02/13/18 21:00 APTT 32.9 Seconds (25.6-37.1) 02/13/18 21:00 - Constitutional Appears: Well, No Acute Distress - Head Exam Head Exam: ATRAUMATIC, NORMOCEPHALIC - Eye Exam Eye Exam: Normal appearance - ENT Exam ENT Exam: Mucous Membranes Moist - Neck Exam Neck Exam: Normal Inspection - Respiratory Exam Respiratory Exam: Clear to Ausculation Bilateral, NORMAL BREATHING PATTERN. absent: Rales, Rhonchi, Wheezes, Respiratory Distress - Cardiovascular Exam Cardiovascular Exam: REGULAR RHYTHM, +S1, +S2 - GI/Abdominal Exam GI & Abdominal Exam: Soft, Normal Bowel Sounds. absent: Distended, Firm, Guarding, Rigid, Tenderness, Organomegaly - Extremities Exam Extremities Exam: absent: Joint Swelling, Pedal Edema - Neurological Exam Neurological Exam: Alert, Awake, Oriented x3 - Psychiatric Exam Psychiatric exam: Normal Affect, Normal Mood - Skin Skin Exam: Dry, Intact, Normal Color, Warm Assessment and Plan - Assessment and Plan (Free Text) Assessment: Brandan Lemon is a 52M w/ hx of HTN, DM type 2 on insulin, Hyperlipidemia, Pancreatitis? 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 Acute sigmoid diverticulitis Rectal bledding, likely hemorrhoidal weight loss hx of pancreatitis? r/o TB Plan: -transfuse if hgb < 7 -no active bleeding -CT pancreas reviewed; inconclusive -recommend IR guided biopsy -kept NPO for possible biopsy today -continue cipro and flagyl for acute diverticulitis -start reg diet after biopsy -will determine next course of action based on histology of pancreatic mass will D/W Dr. Bruno <Wendie Bruno - Last Filed: 02/14/18 14:30> Objective - Vital Signs/Intake and Output Vital Signs (last 24 hours): Temp Pulse Resp BP Pulse Ox 97.7 F 59 L 20 115/76 99 02/14/18 08:18 02/14/18 10:46 02/14/18 08:18 02/14/18 10:46 02/14/18 08:18 - Medications Medications: Current Medications Amylase (Pancrease 48967 U-5000 U-56597 U) 5,000 unit PO TID [facility] Last Admin: 02/14/18 10:42 Dose: 5,000 unit Aspirin (Ecotrin) 81 mg PO DAILY [facility] Last Admin: 02/13/18 08:36 Dose: 81 mg Atorvastatin Calcium (Lipitor) 40 mg PO HS [facility] Last Admin: 02/13/18 23:02 Dose: 40 mg Dextrose (Dextrose 50% Inj) 0 ml IV STAT PRN; Protocol PRN Reason: Hypoglycemia Protocol Dextrose (Glutose 15) 0 gm PO ONCE PRN; Protocol PRN Reason: Hypoglycemia Protocol Enoxaparin Sodium (Lovenox) 40 mg SC DAILY [facility] PRN Reason: Protocol Last Admin: 02/13/18 23:01 Dose: 40 mg Gemfibrozil (Lopid) 600 mg PO BID [facility] Last Admin: 02/14/18 10:47 Dose: 600 mg Glucagon (Glucagen Diagnostic Kit) 0 mg IM STAT PRN; Protocol PRN Reason: Hypoglycemia Protocol Ciprofloxacin (Cipro 400mg/200ml Dsw) 400 mg in 200 mls @ 200 mls/hr IVPB Q12 [facility] PRN Reason: Protocol Last Admin: 02/14/18 10:41 Dose: 200 mls/hr Dextrose/Sodium Chloride (Dextrose 5%-0.45% Ns 500 Ml) 1,000 mls @ 100 mls/hr IV .Q10H [facility] Last Admin: 02/14/18 06:34 Dose: 100 mls/hr Insulin Detemir (Levemir) 10 units SC HS [facility] Last Admin: 02/13/18 23:03 Dose: 10 units Insulin Human Lispro (Humalog) 6 units SC ACTID [facility] Last Admin: 02/14/18 10:43 Dose: Not Given Insulin Human Lispro (Humalog) 0 units SC ACHS [facility] PRN Reason: Protocol Last Admin: 02/14/18 10:43 Dose: Not Given Metoprolol Tartrate (Lopressor) 50 mg PO Q12 [facility] Last Admin: 02/14/18 10:46 Dose: Not Given Metronidazole (Flagyl) 500 mg PO Q8 [facility] Last Admin: 02/14/18 10:41 Dose: 500 mg Ondansetron HCl (Zofran Inj) 4 mg IVP Q6 PRN PRN Reason: Nausea/Vomiting Pantoprazole Sodium (Protonix Ec Tab) 40 mg PO DAILY [facility] Last Admin: 02/14/18 10:42 Dose: 40 mg - Labs Labs: 02/14/18 05:00 02/14/18 05:00 PT 13.5 Seconds (9.8-13.1) H 02/13/18 21:00 INR 1.2 (0.9-1.2) 02/13/18 21:00 APTT 32.9 Seconds (25.6-37.1) 02/13/18 21:00 Attending/Attestation - Attestation I have personally seen and examined this patient.: Yes I have fully participated in the care of the patient.: Yes I have reviewed all pertinent clinical information, including history, physical exam and plan: Yes Notes (Text): 02/14/18 14:27 Patient seen this am. This is a 52 yr old M w/ hx of HTN, DM type 2 on insulin, Hyperlipidemia, Pancreatitis? who presented to the ER after being referred from [facility] for weakness, anemia, possible TB, and weightloss found to have pancreatic mass in body and tail. Patient will benefit from EUS and FNA and oncology consult. As per Ir mass is not amenable to IR guided biopsy. No active bleeding. On airborne isolation for TB. Diet as tolerated. Further plan after tissue sampling. No s/s of obstruction or jaundice. Thank you for letting us participate in the care of your patient
--- NOTE | 2018-02-14 09:42 | CP.PCM.PN ---
Subjective - Date & Time of Evaluation Date of Evaluation: 02/14/18 Time of Evaluation: 09:05 - Subjective Subjective: Patient seen and examined, respiratory isolation for possible active TB in place , NAD, today denies abdominal pain, testicle discomfort, SOB, cough, Chest pain , abdominal pain, N/V/D, chills or fever. Objective - Vital Signs/Intake and Output Vital Signs (last 24 hours): Temp Pulse Resp BP Pulse Ox 97.7 F 59 L 20 115/76 99 02/14/18 08:18 02/14/18 08:18 02/14/18 08:18 02/14/18 08:18 02/14/18 08:18 - Medications Medications: Current Medications Amylase (Pancrease 34435 U-5000 U-43300 U) 5,000 unit PO TID [facility] Last Admin: 02/13/18 16:58 Dose: 5,000 unit Aspirin (Ecotrin) 81 mg PO DAILY [facility] Last Admin: 02/13/18 08:36 Dose: 81 mg Atorvastatin Calcium (Lipitor) 40 mg PO [facility] Last Admin: 02/13/18 23:02 Dose: 40 mg Dextrose (Dextrose 50% Inj) 0 ml IV STAT PRN; Protocol PRN Reason: Hypoglycemia Protocol Dextrose (Glutose 15) 0 gm PO ONCE PRN; Protocol PRN Reason: Hypoglycemia Protocol Enoxaparin Sodium (Lovenox) 40 mg SC DAILY [facility] PRN Reason: Protocol Last Admin: 02/13/18 23:01 Dose: 40 mg Gemfibrozil (Lopid) 600 mg PO BID [facility] Last Admin: 02/13/18 16:58 Dose: 600 mg Glucagon (Glucagen Diagnostic Kit) 0 mg IM STAT PRN; Protocol PRN Reason: Hypoglycemia Protocol Ciprofloxacin (Cipro 400mg/200ml Dsw) 400 mg in 200 mls @ 200 mls/hr IVPB Q12 [facility] PRN Reason: Protocol Last Admin: 02/13/18 23:00 Dose: 200 mls/hr Dextrose/Sodium Chloride (Dextrose 5%-0.45% Ns 500 Ml) 1,000 mls @ 100 mls/hr IV .Q10H [facility] Last Admin: 02/14/18 06:34 Dose: 100 mls/hr Insulin Detemir (Levemir) 10 units SC [facility] Last Admin: 02/13/18 23:03 Dose: 10 units Insulin Human Lispro (Humalog) 6 units SC ACTID [facility] 234 [facility]S [facility] Last Admin: 02/13/18 16:57 Dose: Not Given Insulin Human Lispro (Humalog) 0 units SC ACHS [facility] 234 [facility] PRN Reason: Protocol Last Admin: 02/13/18 23:04 Dose: Not Given Metoprolol Tartrate (Lopressor) 50 mg PO Q12 [facility] Last Admin: 02/13/18 23:02 Dose: Not Given Metronidazole (Flagyl) 500 mg PO Q8 [facility] Last Admin: 02/14/18 01:13 Dose: 500 mg Ondansetron HCl (Zofran Inj) 4 mg IVP Q6 PRN PRN Reason: Nausea/Vomiting Pantoprazole Sodium (Protonix Ec Tab) 40 mg PO DAILY [facility] Last Admin: 02/13/18 08:36 Dose: 40 mg - Labs Labs: 02/14/18 05:00 02/14/18 05:00 PT 13.5 Seconds (9.8-13.1) H 02/13/18 21:00 INR 1.2 (0.9-1.2) 02/13/18 21:00 APTT 32.9 Seconds (25.6-37.1) 02/13/18 21:00 - Constitutional Appears: No Acute Distress - Head Exam Head Exam: ATRAUMATIC - Eye Exam Eye Exam: EOMI, PERRL - ENT Exam ENT Exam: Mucous Membranes Moist - Neck Exam Neck Exam: Full ROM - Respiratory Exam Respiratory Exam: Clear to Ausculation Bilateral. absent: Rales, Rhonchi, Wheezes - Cardiovascular Exam Cardiovascular Exam: REGULAR RHYTHM, +S1, +S2 - GI/Abdominal Exam GI & Abdominal Exam: Soft, Normal Bowel Sounds. absent: Tenderness - Exam Exam: absent: Scrotal Swelling, Testicular Tenderness - Extremities Exam Extremities Exam: absent: Pedal Edema - Neurological Exam Neurological Exam: Alert, Awake, Oriented x3 - Psychiatric Exam Psychiatric exam: Normal Affect, Normal Mood - Skin Skin Exam: Normal Color, Warm Assessment and Plan - Assessment and Plan (Free Text) Assessment: 52 yo male with PMH of DM type 2 on insulin, controlled HTN, HLD, and Pancreatitis, Hx of failure to thrive, generalized weakness, Wt loss, and anemia. Patient was evaluated for IR percutaneous guided Pancreatic mass Bx today 2/2 location of mass unable to be performed and endoscopic IR Bx of pancreatic mass unavailable on site. Patient pending collection of sputum AFB to r/o TB. Chart, VS, nursing notes reviewed. Patient had Testicular duplex US done due to c/o occasional discomfort that is unremarkable (see full report). Plan: Pancreatic mass -GI consulted-Pancreas CT performed, Complex heteregenous pancreatic head and tail mass (see full report) -IR percutaneous guided Pancreas mass Bx unable to be performed 2/2 location, will consider evaluation for Bx at higher level facility -GI consult on board will f/u -Resume heart healthy diet Sigmoid Diverticulitis -w/c antibx Flagyl, cipro Possible TB -Respiratory airborne isolation -AFB x 3 -Sputum culture -CXR done negative Chronic Anemia/Possibly Anemia of chronic Dz -stable -Hb 8.7 -anemia work-up, ferritin 427, TIBC 263, Serum irom 34, B12 771, folate 15.1, Sed rate 96 -RPR neg DM type2 -Diabetic diet -Insulin Lispro SS -Atorvastin 40 po qd
[2018-02-14] MEDS: Ciprofloxacin 400mg/200ml D5W 400 MG/200 ML BAG IVPB SCH ×2 (10:41→22:19)
[2018-02-14] MEDS: Pantoprazole 40 mg EC Tab PO SCH (10:42)
[2018-02-14] MEDS: Amylase/Lipase/Protease 5,000 Units ECC PO SCH ×3 (10:42→17:29)
[2018-02-14] MEDS: Insulin Lispro (humaLOG) 100 Units/ml Inj SC SCH ×7 (10:43→22:21)
--- NOTE | 2018-02-14 10:47 | PCM.IRP ---
Chief Complaint: IR requested to biopsy pancreatic mass. CT reviewed. Mass is not amenable to percutaneous biopsy. Objective - Vital Signs/Intake and Output Vital Signs (last 24 hours): Vital Signs - 24 hr 02/13/18 02/13/18 02/13/18 13:00 16:00 19:46 Temperature 97.5 F L 97.9 F 99.0 F Pulse Rate 57 L 73 56 L Respiratory 18 18 17 Rate Blood Pressure 105/73 104/68 113/73 O2 Sat by Pulse 100 100 100 Oximetry 02/13/18 02/13/18 02/14/18 21:00 23:02 00:15 Temperature 99.0 F 98 F Pulse Rate 56 L 54 L 61 Respiratory 17 20 Rate Blood Pressure 113/73 113/73 115/75 O2 Sat by Pulse 100 100 Oximetry 02/14/18 02/14/18 02/14/18 01:00 05:00 08:18 Temperature 98 F 97.6 F 97.7 F Pulse Rate 61 59 L 59 L Respiratory 20 18 20 Rate Blood Pressure 115/75 101/62 115/76 O2 Sat by Pulse 100 100 99 Oximetry - Medications Medications: Current Medications Amylase (Pancrease 68394 U-5000 U-31626 U) 5,000 unit PO TID [facility] Last Admin: 02/13/18 16:58 Dose: 5,000 unit Aspirin (Ecotrin) 81 mg PO DAILY [facility] Last Admin: 02/13/18 08:36 Dose: 81 mg Atorvastatin Calcium (Lipitor) 40 mg PO HS [facility] Last Admin: 02/13/18 23:02 Dose: 40 mg Dextrose (Dextrose 50% Inj) 0 ml IV STAT PRN; Protocol PRN Reason: Hypoglycemia Protocol Dextrose (Glutose 15) 0 gm PO ONCE PRN; Protocol PRN Reason: Hypoglycemia Protocol Enoxaparin Sodium (Lovenox) 40 mg SC DAILY [facility] PRN Reason: Protocol Last Admin: 02/13/18 23:01 Dose: 40 mg Gemfibrozil (Lopid) 600 mg PO BID [facility] Last Admin: 02/13/18 16:58 Dose: 600 mg Glucagon (Glucagen Diagnostic Kit) 0 mg IM STAT PRN; Protocol PRN Reason: Hypoglycemia Protocol Ciprofloxacin (Cipro 400mg/200ml Dsw) 400 mg in 200 mls @ 200 mls/hr IVPB Q12 [facility] PRN Reason: Protocol Last Admin: 02/13/18 23:00 Dose: 200 mls/hr Dextrose/Sodium Chloride (Dextrose 5%-0.45% Ns 500 Ml) 1,000 mls @ 100 mls/hr IV .Q10H [facility] Last Admin: 02/14/18 06:34 Dose: 100 mls/hr Insulin Detemir (Levemir) 10 units SC HS [facility] Last Admin: 02/13/18 23:03 Dose: 10 units Insulin Human Lispro (Humalog) 6 units SC ACTID [facility] Last Admin: 02/13/18 16:57 Dose: Not Given Insulin Human Lispro (Humalog) 0 units SC ACHS [facility] PRN Reason: Protocol Last Admin: 02/13/18 23:04 Dose: Not Given Metoprolol Tartrate (Lopressor) 50 mg PO Q12 [facility] Last Admin: 02/13/18 23:02 Dose: Not Given Metronidazole (Flagyl) 500 mg PO Q8 [facility] Last Admin: 02/14/18 01:13 Dose: 500 mg Ondansetron HCl (Zofran Inj) 4 mg IVP Q6 PRN PRN Reason: Nausea/Vomiting Pantoprazole Sodium (Protonix Ec Tab) 40 mg PO DAILY [facility] Last Admin: 02/13/18 08:36 Dose: 40 mg - Labs Labs (last 24 hours): Laboratory Results - last 24 hr 02/12/18 02/13/18 02/13/18 19:20 11:27 16:55 WBC RBC Hgb Hct MCV MCH MCHC RDW Plt Count PT INR APTT Sodium Potassium Chloride Carbon Dioxide Anion Gap BUN Creatinine Est GFR ( Amer) Est GFR (Non-Af Amer) POC Glucose (mg/dL) 83 86 Random Glucose Calcium Total Bilirubin AST ALT Alkaline Phosphatase Total Protein Albumin Globulin Albumin/Globulin Ratio CA 19-9 Antigen 20.0 02/13/18 02/13/18 02/14/18 21:00 22:05 05:00 WBC 4.0 L RBC 3.04 L Hgb 8.7 L Hct 26.3 L MCV 86.6 MCH 28.7 MCHC 33.2 RDW 13.8 Plt Count 138 PT 13.5 H INR 1.2 APTT 32.9 Sodium Potassium Chloride Carbon Dioxide Anion Gap BUN Creatinine Est GFR ( Amer) Est GFR (Non-Af Amer) POC Glucose (mg/dL) 150 H Random Glucose Calcium Total Bilirubin AST ALT Alkaline Phosphatase Total Protein Albumin Globulin Albumin/Globulin Ratio CA 19-9 Antigen 02/14/18 02/14/18 05:00 05:32 WBC RBC Hgb Hct MCV MCH MCHC RDW Plt Count PT INR APTT Sodium 141 Potassium 3.7 Chloride 106 Carbon Dioxide 27 Anion Gap 12 BUN 8 L Creatinine 0.7 L Est GFR ( Amer) > 60 Est GFR (Non-Af Amer) > 60 POC Glucose (mg/dL) 96 Random Glucose 94 Calcium 9.5 Total Bilirubin 0.3 AST 18 ALT 16 L Alkaline Phosphatase 69 Total Protein 7.2 Albumin 3.3 L Globulin 3.9 Albumin/Globulin Ratio 0.9 L CA 19-9 Antigen
[2018-02-14] MEDS: Enoxaparin 40 mg Syringe SC SCH (15:21)
[2018-02-14] MEDS ORDERED: Enoxaparin 40 mg Syringe SC SCH (21:00)
[2018-02-14] MEDS: Insulin Detemir 100 Units/ml Inj SC SCH (22:20)
[2018-02-15 05:58] LABS: MEAN CELL VOLUME 86.9 fl (80.0-94.0); MEAN CORPUSCULAR HEMOGLOBIN 28.7 pg (27.0-31.0); RBC 3.13 Mil/uL (4.40-5.90); RED CELL DISTRIBUTION WIDTH 14.2 % (11.5-14.5); WHITE BLOOD COUNT 4.7 K/uL (4.8-10.8)
[2018-02-15 06:28] LABS: ALB/GLOB RATIO 0.9 (1.0-2.1); ALBUMIN 3.3 g/dL (3.5-5.0); ALT/SGPT 19 U/L (21-72); AST/SGOT 29 U/L (17-59); BLOOD UREA NITROGEN 6 mg/dl (9-20); CALCIUM 9.6 mg/dL (8.4-10.2); GFR AFRICAN-AMERICAN > 60; GFR NON-AFRICAN AMERICAN > 60
--- NOTE | 2018-02-15 08:55 | CP.PCM.PN ---
Subjective - Date & Time of Evaluation Date of Evaluation: 02/15/18 Time of Evaluation: 08:00 - Subjective Subjective: Patient seen and examined, in respiratory isolation for possible active TB, NAD , today denies abdominal pain, SOB, cough, Chest pain, abdominal pain, N/V/D, chills or fever, Patient states his appetite is poor. Objective - Vital Signs/Intake and Output Vital Signs (last 24 hours): Temp Pulse Resp BP Pulse Ox 97.9 F 54 L 18 108/71 99 02/15/18 08:23 02/15/18 08:23 02/15/18 08:23 02/15/18 08:23 02/15/18 08:23 - Medications Medications: Current Medications Amylase (Pancrease 18503 U-5000 U-19967 U) 5,000 unit PO TID [facility] Last Admin: 02/14/18 17:29 Dose: 5,000 unit Aspirin (Ecotrin) 81 mg PO DAILY [facility] Last Admin: 02/14/18 15:21 Dose: 81 mg Atorvastatin Calcium (Lipitor) 40 mg PO HS [facility] Last Admin: 02/14/18 22:22 Dose: 40 mg Dextrose (Dextrose 50% Inj) 0 ml IV STAT PRN; Protocol PRN Reason: Hypoglycemia Protocol Dextrose (Glutose 15) 0 gm PO ONCE PRN; Protocol PRN Reason: Hypoglycemia Protocol Enoxaparin Sodium (Lovenox) 40 mg SC DAILY [facility] PRN Reason: Protocol Last Admin: 02/14/18 15:21 Dose: 40 mg Gemfibrozil (Lopid) 600 mg PO BID [facility] Last Admin: 02/14/18 17:29 Dose: 600 mg Glucagon (Glucagen Diagnostic Kit) 0 mg IM STAT PRN; Protocol PRN Reason: Hypoglycemia Protocol Ciprofloxacin (Cipro 400mg/200ml Dsw) 400 mg in 200 mls @ 200 mls/hr IVPB Q12 [facility] PRN Reason: Protocol Last Admin: 02/14/18 22:19 Dose: 200 mls/hr Insulin Detemir (Levemir) 10 units SC HS [facility] Last Admin: 02/14/18 22:20 Dose: 10 units Insulin Human Lispro (Humalog) 6 units SC ACTID [facility] Last Admin: 02/14/18 17:30 Dose: 6 units Insulin Human Lispro (Humalog) 0 units SC ACHS [facility] PRN Reason: Protocol Last Admin: 02/14/18 22:21 Dose: Not Given Metoprolol Tartrate (Lopressor) 50 mg PO Q12 [facility] Last Admin: 02/14/18 22:22 Dose: 50 mg Metronidazole (Flagyl) 500 mg PO Q8 [facility] Last Admin: 02/15/18 02:13 Dose: 500 mg Ondansetron HCl (Zofran Inj) 4 mg IVP Q6 PRN PRN Reason: Nausea/Vomiting Pantoprazole Sodium (Protonix Ec Tab) 40 mg PO DAILY [facility] Last Admin: 02/14/18 10:42 Dose: 40 mg - Labs Labs: 02/15/18 05:24 02/15/18 05:24 PT 13.5 Seconds (9.8-13.1) H 02/13/18 21:00 INR 1.2 (0.9-1.2) 02/13/18 21:00 APTT 32.9 Seconds (25.6-37.1) 02/13/18 21:00 - Constitutional Appears: No Acute Distress - Head Exam Head Exam: NORMOCEPHALIC - Eye Exam Eye Exam: EOMI, PERRL - ENT Exam ENT Exam: Mucous Membranes Moist - Neck Exam Neck Exam: Full ROM - Respiratory Exam Respiratory Exam: Clear to Ausculation Bilateral. absent: Rales, Rhonchi, Wheezes - GI/Abdominal Exam GI & Abdominal Exam: Soft, Normal Bowel Sounds. absent: Tenderness - Extremities Exam Extremities Exam: absent: Pedal Edema - Neurological Exam Neurological Exam: Alert, Awake, Oriented x3 - Psychiatric Exam Psychiatric exam: Normal Affect, Normal Mood - Skin Skin Exam: Normal Color, Warm Assessment and Plan - Assessment and Plan (Free Text) Assessment: 52 yo male with PMH of DM type 2 on insulin, controlled HTN, HLD, and Pancreatitis, Hx of failure to thrive, generalized weakness, Wt loss, and anemia. IR percutaneous Bx of the pancreatic mass was not done yesterday due to location, will f/u management with GI. Two AFB sputum collected and negative for TB, pending the third. Plan: Pancreatic mass -GI consulted-Pancreas CT performed, Complex heteregenous pancreatic head and tail mass (see full report) -IR percutaneous guided Pancreas mass Bx unable to be performed 2/2 location -GI consult on board will f/u recommendations -heart healthy diet Sigmoid Diverticulitis -w/c antibx Flagyl, cipro Possible TB -Respiratory airborne isolation -AFB x 3, 2 done negatve w/f pending 3rd sputum -Sputum culture -CXR done negative Chronic Anemia/Possibly Anemia of chronic Dz -stable -H/H 9.0/27.2 -anemia work-up, ferritin 427, TIBC 263, Serum irom 34, B12 771, folate 15.1, Sed rate 96 -Hematology consult on board will f/u recommendations -RPR neg DM type2 -Diabetic diet -Insulin Lispro SS -Atorvastin 40 po qd
--- NOTE | 2018-02-15 09:32 | CP.PCM.CON ---
History of Present Illness - History of Present Illness History of Present Illness: This is a 52 yrs old male who was admitted with c/o weakness and a weight loss of 60 lbs over the last 2-3 months. He had been admitted to a hospital in [place] in october for similar complaints. He is not clear on what the diagnosis was, but according to him he was anemic. Occ abdominal pain. A CT scan of the abdomen done at [facility] shows a pancreatic mass. He was regferred to IR for biopsy,but they said that it was not possible to so a percutaneous biopsy. Pt may need a EUS biopsy to see if he has a pancreatic ca, His ca 19-9 is 20 which is within the normal range. His hgb is only 9.8 with a ferritin of 427 and MCV of 86., B12 is 771 and ESR id 98. At this time he is on antibiotics for the TB, past history of HTN,Hyperlipidemia and pancreatitis. He was a smoker 20 yrs ago, a couple of cigs daily. Past Patient History - Past Social History Smoking Status: Former Smoker - CARDIAC Hx Cardiac Disorders: Yes Hx Hypercholesterolemia: Yes Hx Hypertension: Yes - PULMONARY Hx Respiratory Disorders: No - NEUROLOGICAL Hx Neurological Disorder: No - HEENT Hx HEENT Problems: No - RENAL Hx Chronic Kidney Disease: No - ENDOCRINE/METABOLIC Hx Endocrine Disorders: Yes Hx Diabetes Mellitus Type 2: Yes - HEMATOLOGICAL/ONCOLOGICAL Hx Blood Disorders: (pancreatitis) - INTEGUMENTARY Hx Dermatological Problems: No - MUSCULOSKELETAL/RHEUMATOLOGICAL Hx Falls: No - GASTROINTESTINAL Hx Pancreatitis: Yes - GENITOURINARY/GYNECOLOGICAL Hx Genitourinary Disorders: No - PSYCHIATRIC Hx Substance Use: No - ANESTHESIA Hx Anesthesia: No Meds Allergies/Adverse Reactions: Allergies Allergy/AdvReac Type Severity Reaction Status Date / Time No Known Allergies Allergy Verified 02/12/18 12:48 - Medications Medications: Current Medications Amylase (Pancrease 61799 U-5000 [id number] U) 5,000 unit PO TID [facility] Last Admin: 02/14/18 17:29 Dose: 5,000 unit Aspirin (Ecotrin) 81 mg PO DAILY [facility] Last Admin: 02/14/18 15:21 Dose: 81 mg Atorvastatin Calcium (Lipitor) 40 mg PO HS [facility] Last Admin: 02/14/18 22:22 Dose: 40 mg Dextrose (Dextrose 50% Inj) 0 ml IV STAT PRN; Protocol PRN Reason: Hypoglycemia Protocol Dextrose (Glutose 15) 0 gm PO ONCE PRN; Protocol PRN Reason: Hypoglycemia Protocol Enoxaparin Sodium (Lovenox) 40 mg SC DAILY [facility] PRN Reason: Protocol Last Admin: 02/14/18 15:21 Dose: 40 mg Gemfibrozil (Lopid) 600 mg PO BID [facility] Last Admin: 02/14/18 17:29 Dose: 600 mg Glucagon (Glucagen Diagnostic Kit) 0 mg IM STAT PRN; Protocol PRN Reason: Hypoglycemia Protocol Ciprofloxacin (Cipro 400mg/200ml Dsw) 400 mg in 200 mls @ 200 mls/hr IVPB Q12 [facility] PRN Reason: Protocol Last Admin: 02/14/18 22:19 Dose: 200 mls/hr Insulin Detemir (Levemir) 10 units SC HS [facility] Last Admin: 02/14/18 22:20 Dose: 10 units Insulin Human Lispro (Humalog) 6 units SC ACTID [facility] Last Admin: 02/14/18 17:30 Dose: 6 units Insulin Human Lispro (Humalog) 0 units SC ACHS [facility] PRN Reason: Protocol Last Admin: 02/14/18 22:21 Dose: Not Given Metoprolol Tartrate (Lopressor) 50 mg PO Q12 [facility] Last Admin: 02/14/18 22:22 Dose: 50 mg Metronidazole (Flagyl) 500 mg PO Q8 [facility] Last Admin: 02/15/18 02:13 Dose: 500 mg Ondansetron HCl (Zofran Inj) 4 mg IVP Q6 PRN PRN Reason: Nausea/Vomiting Pantoprazole Sodium (Protonix Ec Tab) 40 mg PO DAILY [facility] Last Admin: 02/14/18 10:42 Dose: 40 mg Physical Exam - Additional Findings Additional findings: Physical exam; Alert, well oriented , pleasant man in no acute distress neck; Supple, no adenopatht Chest; Clear, no rales or rhonchi Heart; RSR, no murmur Abd; No mass palpable, no tenderness Results - Vital Signs Recent Vital Signs: Last Vital Signs Temp 97.9 F 02/15/18 08:23 Pulse 54 L 02/15/18 08:23 Resp 18 02/15/18 08:23 BP 108/71 02/15/18 08:23 Pulse Ox 99 02/15/18 08:23 - Labs Result Diagrams: 02/15/18 05:24 02/15/18 05:24 Labs: Laboratory Results - last 24 hr 02/14/18 02/14/18 02/14/18 11:45 16:09 21:48 WBC RBC Hgb Hct MCV MCH MCHC RDW Plt Count Sodium Potassium Chloride Carbon Dioxide Anion Gap BUN Creatinine Est GFR ( Amer) Est GFR (Non-Af Amer) POC Glucose (mg/dL) 125 H 175 H 91 Random Glucose Calcium Total Bilirubin AST ALT Alkaline Phosphatase Total Protein Albumin Globulin Albumin/Globulin Ratio 02/15/18 02/15/18 02/15/18 05:24 05:24 05:46 WBC 4.7 L RBC 3.13 L Hgb 9.0 L Hct 27.2 L MCV 86.9 MCH 28.7 MCHC 33.0 RDW 14.2 Plt Count 147 Sodium 141 Potassium 4.0 Chloride 107 Carbon Dioxide 24 Anion Gap 14 BUN 6 L Creatinine 0.7 L Est GFR ( Amer) > 60 Est GFR (Non-Af Amer) > 60 POC Glucose (mg/dL) 82 Random Glucose 97 Calcium 9.6 Total Bilirubin 0.3 AST 29 ALT 19 L Alkaline Phosphatase 73 Total Protein 7.2 Albumin 3.3 L Globulin 3.8 Albumin/Globulin Ratio 0.9 L Assessment & Plan - Assessment and Plan (Free Text) Assessment: Impression; Anemia could be secondary to chronically poor appetite and poor nutrition or r/o hemoglobinopathy Pancreatic mass, most probably pancreatic cancer. Plan: Plan; will order blood for hemoglobinopathy Pt might need a EUS for te pancreatic biopsy.
[2018-02-15] MEDS: Ciprofloxacin 400mg/200ml D5W 400 MG/200 ML BAG IVPB SCH ×2 (09:53→22:30)
[2018-02-15] MEDS: Amylase/Lipase/Protease 5,000 Units ECC PO SCH ×3 (09:54→16:55)
[2018-02-15] MEDS: Enoxaparin 40 mg Syringe SC SCH (09:54)
[2018-02-15] MEDS: Insulin Lispro (humaLOG) 100 Units/ml Inj SC SCH ×7 (09:54→22:14)
[2018-02-15] MEDS: Pantoprazole 40 mg EC Tab PO SCH (09:56)
[2018-02-15] MEDS: Lactobacillus Acidophilus 500 MU Cap PO SCH (16:55)
[2018-02-15] MEDS: Insulin Detemir 100 Units/ml Inj SC SCH (22:31)
[2018-02-16 06:13] LABS: HEMOGLOBIN 9.5 g/dL (12.0-18.0); MEAN CELL VOLUME 85.7 fl (80.0-94.0); MEAN CORPUSCULAR HGB CONC 33.9 g/dL (33.0-37.0); RBC 3.28 Mil/uL (4.40-5.90); RED CELL DISTRIBUTION WIDTH 13.8 % (11.5-14.5)
[2018-02-16] MEDS: Insulin Lispro (humaLOG) 100 Units/ml Inj SC SCH ×7 (06:31→22:52)
[2018-02-16 06:38] LABS: ALB/GLOB RATIO 0.9 (1.0-2.1); ALBUMIN 3.4 g/dL (3.5-5.0); ALT/SGPT 15 U/L (21-72); AST/SGOT 18 U/L (17-59); BLOOD UREA NITROGEN 7 mg/dl (9-20); CALCIUM 9.5 mg/dL (8.4-10.2); GFR AFRICAN-AMERICAN > 60; GFR NON-AFRICAN AMERICAN > 60
--- NOTE | 2018-02-16 07:34 | CP.PCM.PN ---
Subjective - Date & Time of Evaluation Date of Evaluation: 02/16/18 Time of Evaluation: 07:34 - Subjective Subjective: pt seen and examined at bedside. No acute events overnight. Afebrile. Remains on isolation pending 3rd sputum result. Labs/vitals reviewed. No CP/SOB, nausea , vomiting, diarrhea, night sweats, pain. Objective - Vital Signs/Intake and Output Vital Signs (last 24 hours): Temp Pulse Resp BP Pulse Ox 98.2 F 58 L 18 101/64 98 02/16/18 05:17 02/16/18 05:17 02/16/18 05:17 02/16/18 05:17 02/16/18 05:17 - Medications Medications: Current Medications Amylase (Pancrease 53687 U-5000 [id number] U) 5,000 unit PO TID [facility] Last Admin: 02/15/18 16:55 Dose: 5,000 unit Aspirin (Ecotrin) 81 mg PO DAILY [facility] Last Admin: 02/15/18 09:53 Dose: 81 mg Atorvastatin Calcium (Lipitor) 40 mg PO HS [facility] Last Admin: 02/15/18 22:30 Dose: 40 mg Dextrose (Dextrose 50% Inj) 0 ml IV STAT PRN; Protocol PRN Reason: Hypoglycemia Protocol Dextrose (Glutose 15) 0 gm PO ONCE PRN; Protocol PRN Reason: Hypoglycemia Protocol Enoxaparin Sodium (Lovenox) 40 mg SC DAILY [facility] PRN Reason: Protocol Last Admin: 02/15/18 09:54 Dose: 40 mg Gemfibrozil (Lopid) 600 mg PO BID [facility] Last Admin: 02/15/18 16:56 Dose: 600 mg Glucagon (Glucagen Diagnostic Kit) 0 mg IM STAT PRN; Protocol PRN Reason: Hypoglycemia Protocol Ciprofloxacin (Cipro 400mg/200ml Dsw) 400 mg in 200 mls @ 200 mls/hr IVPB Q12 [facility] PRN Reason: Protocol Last Admin: 02/15/18 22:30 Dose: 200 mls/hr Insulin Detemir (Levemir) 10 units SC HS [facility] Last Admin: 02/15/18 22:31 Dose: 10 units Insulin Human Lispro (Humalog) 6 units SC ACTID [facility] Last Admin: 02/15/18 16:56 Dose: Not Given Insulin Human Lispro (Humalog) 0 units SC ACHS [facility] PRN Reason: Protocol Last Admin: 02/16/18 06:31 Dose: Not Given Lactobacillus Acidophilus (Bacid Acidophilus) 1 cap PO BID [facility] Last Admin: 02/15/18 16:55 Dose: 1 cap Metoprolol Tartrate (Lopressor) 50 mg PO Q12 [facility] Last Admin: 02/15/18 22:30 Dose: 50 mg Metronidazole (Flagyl) 500 mg PO Q8 [facility] Last Admin: 02/16/18 01:34 Dose: 500 mg Ondansetron HCl (Zofran Inj) 4 mg IVP Q6 PRN PRN Reason: Nausea/Vomiting Pantoprazole Sodium (Protonix Ec Tab) 40 mg PO DAILY [facility] Last Admin: 02/15/18 09:56 Dose: 40 mg - Labs Labs: 02/16/18 04:45 02/16/18 04:45 PT 13.5 Seconds (9.8-13.1) H 02/13/18 21:00 INR 1.2 (0.9-1.2) 02/13/18 21:00 APTT 32.9 Seconds (25.6-37.1) 02/13/18 21:00 - Constitutional Appears: Non-toxic, No Acute Distress, Older Than Stated Age - Head Exam Head Exam: ATRAUMATIC, NORMOCEPHALIC - Eye Exam Eye Exam: EOMI Pupil Exam: PERRL - ENT Exam ENT Exam: Mucous Membranes Moist - Neck Exam Neck Exam: absent: Lymphadenopathy - Respiratory Exam Respiratory Exam: Clear to Ausculation Bilateral, NORMAL BREATHING PATTERN. absent: Accessory Muscle Use, Decreased Breath Sounds, Rales, Rhonchi, Wheezes, Stridor - Cardiovascular Exam Cardiovascular Exam: REGULAR RHYTHM, RRR, +S1, +S2. absent: Tachycardia, JVD, Rubs, Murmur - GI/Abdominal Exam GI & Abdominal Exam: Soft, Normal Bowel Sounds. absent: Firm, Guarding, Rigid, Tenderness, Organomegaly, Rebound - Extremities Exam Extremities Exam: Full ROM, Normal Capillary Refill, Normal Inspection. absent : Calf Tenderness, Pedal Edema - Neurological Exam Neurological Exam: Alert, Awake, CN II-XII Intact, Oriented x3 - Psychiatric Exam Psychiatric exam: Normal Affect, Normal Mood - Skin Skin Exam: Dry, Intact Assessment and Plan - Assessment and Plan (Free Text) Assessment: 52 yo male with PMHx of IDDM2, HTN, HLD, Pancreatitis admitted for failure to thrive and suspected TB infection. Plan: 1) Suspected TB Infection -Respiratory airborne isolation -AFB x 3, 2/3 negative for acid fast bacilli -3rd collected, results pending -CXR: no active disease 2) Pancreatic mass -likely pseudocyst formation from severe pancreatitis earlier this year (most recent hospital d/c paperwork reviewed) -GI consulted-Pancreas CT performed, Complex heteregenous pancreatic head and tail mass (see full report) -IR percutaneous guided Pancreas mass Bx unable to be performed 2/2 location -GI consult on board will f/u recommendations -will need Biopsy in future to rule out malignancy 3) Sigmoid Diverticulitis -afebrile -asymptomatic today -no leukocytosis -tolerating PO diet -c/w IV Abx Cipro/flagyl as ordered 4) Chronic Anemia/Possibly Anemia of chronic Dz -stable -H/H 9.5/28.1 -anemia work-up, ferritin 427, TIBC 263, Serum irom 34, B12 771, folate 15.1, Sed rate 96 -Hematology consult on board will f/u recommendations -RPR neg 5) IDDM2 -Diabetic diet -resume home medications as ordered -Insulin Lispro coverage scale -hypoglycemia protocol 6) Hyperlipidemia -c/w Atorvastatin 40mg PO QHS as ordered -c/w Gemfibrozil 600mg as ordered 7) Prophylaxis -Lovenox 40mg SC QD 8) Diet: -consistent carbohydrate diet 9) Code Status: -full code 10) Isolation -airborne pending sputum stain
[2018-02-16] MEDS: Ciprofloxacin 400mg/200ml D5W 400 MG/200 ML BAG IVPB SCH ×2 (09:08→22:45)
[2018-02-16] MEDS: Lactobacillus Acidophilus 500 MU Cap PO SCH ×2 (09:08→17:14)
[2018-02-16] MEDS: Amylase/Lipase/Protease 5,000 Units ECC PO SCH ×3 (09:09→17:14)
[2018-02-16] MEDS: Enoxaparin 40 mg Syringe SC SCH (09:09)
[2018-02-16] MEDS: Pantoprazole 40 mg EC Tab PO SCH (09:10)
[2018-02-16 12:40] VITALS: O2SAT 100
[2018-02-16] MEDS: Insulin Detemir 100 Units/ml Inj SC SCH (22:50)
[2018-02-17 05:12] VITALS: TEMP 97.7
[2018-02-17] MEDS: Insulin Lispro (humaLOG) 100 Units/ml Inj SC SCH ×4 (08:25→12:23)
[2018-02-17] MEDS: Pantoprazole 40 mg EC Tab PO SCH (09:24)
[2018-02-17] MEDS: Enoxaparin 40 mg Syringe SC SCH (09:24)
[2018-02-17] MEDS: Amylase/Lipase/Protease 5,000 Units ECC PO SCH ×2 (09:24→13:01)
[2018-02-17] MEDS: Lactobacillus Acidophilus 500 MU Cap PO SCH (09:28)
[2018-02-17] MEDS: Ciprofloxacin 400mg/200ml D5W 400 MG/200 ML BAG IVPB SCH (09:29)
[2018-02-17 12:36] VITALS: BP 114/80; PULSE 60; RESP 18
--- NOTE | 2018-02-17 15:16 | CP.PCM.DIS ---
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 Status: Acute (3) Diverticulitis Status: Acute Hospital Course - Lab Results Lab Results: Micro Results 02/15/18 17:00 Other: Please Indicate Mycobacterial Culture - Preliminary 02/13/18 19:01 Other: Please Indicate Mycobacterial Culture - Preliminary 02/12/18 21:11 Other: Please Indicate Mycobacterial Culture - Preliminary Most Recent Lab Values WBC 7.0 K/uL (4.8-10.8) 02/16/18 04:45 RBC 3.28 Mil/uL (4.40-5.90) L 02/16/18 04:45 Hgb 9.5 g/dL (12.0-18.0) L 02/16/18 04:45 Hct 28.1 % (35.0-51.0) L 02/16/18 04:45 MCV 85.7 fl (80.0-94.0) 02/16/18 04:45 MCH 29.0 pg (27.0-31.0) 02/16/18 04:45 MCHC 33.9 g/dL (33.0-37.0) 02/16/18 04:45 RDW 13.8 % (11.5-14.5) 02/16/18 04:45 Plt Count 153 K/uL (130-400) 02/16/18 04:45 MPV 9.1 fl (7.2-11.7) 02/12/18 14:30 Neut % (Auto) 69.1 % (50.0-75.0) 02/12/18 14:30 Lymph % (Auto) 19.9 % (20.0-40.0) L 02/12/18 14:30 [place] % (Auto) 8.4 % (0.0-10.0) 02/12/18 14:30 Eos % (Auto) 2.4 % (0.0-4.0) 02/12/18 14:30 Baso % (Auto) 0.2 % (0.0-2.0) 02/12/18 14:30 Neut # (Auto) 4.9 K/uL (1.8-7.0) 02/12/18 14:30 Lymph # (Auto) 1.4 K/uL (1.0-4.3) 02/12/18 14:30 [place] # (Auto) 0.6 K/uL (0.0-0.8) 02/12/18 14:30 Eos # (Auto) 0.2 K/uL (0.0-0.7) 02/12/18 14:30 Baso # (Auto) 0.0 K/uL (0.0-0.2) 02/12/18 14:30 ESR 96 mm/hr (0-20) H 02/12/18 17:30 PT 13.5 Seconds (9.8-13.1) H 02/13/18 21:00 INR 1.2 (0.9-1.2) 02/13/18 21:00 APTT 32.9 Seconds (25.6-37.1) 02/13/18 21:00 Sodium 138 mmol/l (132-148) 02/16/18 04:45 Potassium 4.4 MMOL/L (3.6-5.0) 02/16/18 04:45 Chloride 105 mmol/L (98-107) 02/16/18 04:45 Carbon Dioxide 24 mmol/L (22-30) 02/16/18 04:45 Anion Gap 13 (10-20) 02/16/18 04:45 BUN 7 mg/dl (9-20) L 02/16/18 04:45 Creatinine 0.8 mg/dl (0.8-1.5) 02/16/18 04:45 Est GFR ( Amer) > 60 02/16/18 04:45 Est GFR (Non-Af Amer) > 60 02/16/18 04:45 POC Glucose (mg/dL) 200 mg/dL (65-110) H 02/17/18 11:04 Random Glucose 95 mg/dL (75-110) 02/16/18 04:45 Calcium 9.5 mg/dL (8.4-10.2) 02/16/18 04:45 Iron 34 ug/dL (49-181) L 02/12/18 17:30 TIBC 263 ug/dL (250-450) 02/12/18 17:30 % Saturation 13 % (20-55) L 02/12/18 17:30 Ferritin 427.0 ng/Ml (17.9-464) 02/12/18 17:30 Total Bilirubin 0.3 mg/dl (0.2-1.3) 02/16/18 04:45 AST 18 U/L (17-59) 02/16/18 04:45 ALT 15 U/L (21-72) L D 02/16/18 04:45 Alkaline Phosphatase 68 U/L (38-126) 02/16/18 04:45 Total Protein 7.1 G/DL (6.3-8.2) 02/16/18 04:45 Albumin 3.4 g/dL (3.5-5.0) L 02/16/18 04:45 Globulin 3.7 gm/dL (2.2-3.9) 02/16/18 04:45 Albumin/Globulin Ratio 0.9 (1.0-2.1) L 02/16/18 04:45 Amylase 41 U/L (30-110) 02/12/18 17:30 Lipase 50 U/L (23-300) 02/12/18 17:30 Carcinoembryonic Ag 1.1 ng/mL (0-3.0) 02/12/18 19:20 CA 19-9 Antigen 20.0 U/mL (0-37) 02/12/18 19:20 Vitamin B12 771 pg/mL (239-931) 02/12/18 17:30 Folate 15.1 ng/mL 02/12/18 17:30 RPR Nonreactive (NONREACTIVE) 02/12/18 17:30 - Hospital Course Hospital Course: Brandan Lemon is a pleasant 52 yo male with PMH of HTN, DM type 2 on insulin , Hyperlipidemia, Pancreatitis admitted to the hospital on 02/12/18 for evaluation after he was found to have a positive quantiferon test at the clinic , also anemia, Wt loss of approximately 60 lbs since October, mild abdominal discomfort located to the LLQ and c/o weakness running for several months. The patient was admitted to respiratory isolation due to concerns of possible active TB, during his hospital stay, 3 AFB sputum were collected and reported as negative as well as his CXR reported with no active disease. CT scan of abdomen and pelvis was performed with an impression diagnosis of acute diverticulitis of sigmoid colon, also a pancreatic tail mass was seen, the patient was evaluated by IR for possible Bx to r/o malignancy vs pseudocyst possibly related to hx of pancreatitis in , IR unable to access Mass for Bx due to location. During his hospital course he has been treated for diverticulitis with Ciproflouxacin 400 mg IV bid and Flagyl 500 mg IV TID, at this point the patient is stable, denies APARICIO, chills, fever, dyaphoresis, states his appetite is improved, and his strength, denies N/V/D. Decision is made to D/ c patient home with f/u at the [facility] clinic to continue his management of chronic conditions and continue monitoring him, patient is notified and arrangements are made for appointment this week at the clinic, medications scripts given upon D/c. Referred patient to [facility] [place] [facility] [place] Scripts: -Ciproflouxacin 500 bid x 6 days to complete antibx course -flagyl 500 mg po tid x 6 days to complete antibx course Discharge Exam - Head Exam Head Exam: ATRAUMATIC, NORMOCEPHALIC - Eye Exam Eye Exam: EOMI, PERRL - ENT Exam ENT Exam: Mucous Membranes Moist - Respiratory Exam Respiratory Exam: Clear to PA & Lateral. absent: Rales, Rhonchi, Wheezes - Cardiovascular Exam Cardiovascular Exam: REGULAR RHYTHM, +S1, +S2 - GI/Abdominal Exam GI & Abdominal Exam: Normal Bowel Sounds. absent: Organomegaly - Neurological Exam Neurological exam: Abnormal Gait (uses cane), Alert, Oriented x3 - Psychiatric Exam Psychiatric exam: Normal Affect, Normal Mood - Skin Skin Exam: Normal Color, Warm Discharge Plan - Follow Up Plan Condition: STABLE Disposition: HOME/ ROUTINE Additional Instructions: take your antibiotics for 6 more days as prescribed we are currently working on setting up an appointment time for you at the [facility] we will contact you tomorrow at the number you have provided with an appointment date and time if symptoms worsen, return to ED for further evaluation Referrals: [facility] [Outside]
== END 2018-02-17 15:05 | disposition home or self-care (01) | DRG 204 ==
LOC: H.ER 12:38 → H.ERHOLD 12:53 → H.TEL 02-13 00:47 → OBSVTOIN 02-14 07:36
PROVIDERS: ADMIT Family Medicine Geriatric Medicine; ATTEND Family Medicine Geriatric Medicine
DX: K86.3 Pseudocyst of pancreas (principal); D63.8 Anemia in other chronic diseases classified elsewhere; K86.1 Other chronic pancreatitis; K57.32 Diverticulitis of large intestine without perforation or abscess without bleeding; R76.11 Nonspecific reaction to tuberculin skin test without active tuberculosis; R62.7 Adult failure to thrive; K64.8 Other hemorrhoids; F10.10 Alcohol abuse, uncomplicated; E11.9 Type 2 diabetes mellitus without complications; I10 Essential (primary) hypertension; E78.5 Hyperlipidemia, unspecified; E78.00 Pure hypercholesterolemia, unspecified; Z79.4 Long term (current) use of insulin; Z79.82 Long term (current) use of aspirin; Z87.891 Personal history of nicotine dependence

== ENCOUNTER 2018-05-08 11:45 | Emergency (ER) | payer MEDICAID, SELFPAY ==
[2018-05-08 11:50] VITALS: BMI 26.6
[2018-05-08 11:51] VITALS: O2SAT 100
[2018-05-08] MEDS ORDERED: Sodium Chloride 0.9% 1,000 ML IV STA (12:24)
--- NOTE | 2018-05-08 12:39 | ED PDOC ---
HPI: Abdomen Time Seen by Provider: 05/08/18 12:16 Chief Complaint (Nursing): Abdominal Pain Chief Complaint (Provider): Abdominal Pain History Per: Patient History/Exam Limitations: no limitations Onset/Duration Of Symptoms: Days (x1) Current Symptoms Are (Timing): Still Present Additional Complaint(s): 52 year old male, with a past medical history of hypertension, hy percholesterolemia, and pancreatic insufficiency, presenting with acute onset of vomiting and bitter taste in mouth associated with lower abdominal pain since this morning. Patient states he felt fine yesterday and was asymptomatic. Patient also states he is compliant with all his medications. Patient denies any fevers, chills, or diarrhea, and states hes having normal bowel movements. Past Medical History Reviewed: Historical Data, Nursing Documentation, Vital Signs Vital Signs: Last Vital Signs Temp 97.7 F 05/08/18 11:50 Pulse 61 05/08/18 11:50 Resp 17 05/08/18 11:50 BP 154/85 H 05/08/18 11:50 Pulse Ox 100 05/08/18 11:50 - Medical History PMH: Diabetes, HTN, Hypercholesterolemia, Pancreatitis Denies: Chronic Kidney Disease - Surgical History Surgical History: No Surg Hx - Family History Family History: States: Unknown Family Hx - Home Medications Home Medications: Ambulatory Orders Medication Instructions Recorded Aspirin [Ecotrin] 81 mg PO DAILY 02/12/18 Atorvastatin [Lipitor] 40 mg PO HS 02/12/18 Gemfibrozil 600 mg PO BID 02/12/18 Insulin Glargine, Recombina 10 unit SC HS 02/12/18 [Lantus] Insulin Lispro [humALOG] 6 unit SC ACTID 02/12/18 Lipase/Protease/Amylase [Creon Dr 1 cap PO TID 02/12/18 6,000 Units Capsule] Metoprolol Tartrate [Lopressor] 50 mg PO Q12 02/12/18 Pantoprazole Sodium [Protonix] 40 mg PO DAILY 02/12/18 Ondansetron [Zofran] 4 mg PO Q8H #9 tab 05/08/18 - Allergies Allergies/Adverse Reactions: Allergies Allergy/AdvReac Type Severity Reaction Status Date / Time No Known Allergies Allergy Verified 02/12/18 12:48 Review of Systems ROS Statement: Except As Marked, All Systems Reviewed And Found Negative Constitutional: Negative for: Fever, Chills Gastrointestinal: Positive for: Nausea, Vomiting, Abdominal Pain. Negative for: Diarrhea, Constipation Physical Exam - Reviewed Nursing Documentation Reviewed: Yes Vital Signs Reviewed: Yes - Physical Exam Appears: Positive for: Non-toxic, No Acute Distress Head Exam: Positive for: ATRAUMATIC, NORMAL INSPECTION, NORMOCEPHALIC Skin: Positive for: Normal Color, Warm, Dry. Negative for: Rash Eye Exam: Positive for: EOMI, Normal appearance, PERRL ENT: Positive for: Normal ENT Inspection Neck: Positive for: Normal, Painless ROM, Supple Cardiovascular/Chest: Positive for: Regular Rate, Rhythm. Negative for: Murmur Respiratory: Positive for: Normal Breath Sounds. Negative for: Respiratory Distress Gastrointestinal/Abdominal: Positive for: Soft, Tenderness (epigastric, LLQ, RLQ). Negative for: Rebound Back: Positive for: Normal Inspection. Negative for: L CVA Tenderness, R CVA Tenderness, Vertebral Tenderness Extremity: Positive for: Normal ROM. Negative for: Deformity Neurologic/Psych: Positive for: Alert, Oriented. Negative for: Motor/Sensory Deficits - Laboratory Results Result Diagrams: 05/08/18 13:35 05/08/18 13:35 - ECG O2 Sat by Pulse Oximetry: 100 (RA) Pulse Ox Interpretation: Normal Medical Decision Making Medical Decision Makin Initial Impression: Abdominal pain; r/o pancreatitis; r/o obstruction; r/o diverticular disease Plan: -Amylase -CMP -Lipase -Urine dip -CBC -NS 1L IVB -Pepcid 20mg IV -Zofran 4mg IV -IV insertion -US abdomen -Reevaluation Scribe Attestation: Documented by Jake Ferreira, acting as a scribe for Wilma Canseco MD. Provider Scribe Attestation: All medical record entries made by the Scribe were at my direction and personally dictated by me. I have reviewed the chart and agree that the record accurately reflects my personal performance of the history, physical exam, medical decision making, and the department course for this patient. I have also personally directed, reviewed, and agree with the discharge instructions and disposition. 2.45p - feeling better. labs and US without significant findings. will d/c Disposition - Clinical Impression Clinical Impression: Abdominal pain - Patient ED Disposition Is Patient to be Admitted: No Doctor Will See Patient In The: Office Counseled Patient/Family Regarding: Diagnosis, Need For Followup, Rx Given - Disposition Disposition: Routine/Home Disposition Time: 14:57 Condition: IMPROVED Prescriptions: Ondansetron [Zofran] 4 mg PO Q8H #9 tab Instructions: Acute Abdomen (Belly Pain) Forms: [facility] (Kyrgyz) Print Language: NIUEAN - POA Present On Arrival: None
[2018-05-08 13:55] LABS: BASO % 0.2 % (0.0-2.0); EOS % 0.3 % (0.0-4.0); HEMOGLOBIN 11.5 g/dL (12.0-18.0); LYMPH # 0.6 K/uL (1.0-4.3); LYMPH % 5.2 % (20.0-40.0); MEAN CELL VOLUME 84.1 fl (80.0-94.0); MEAN CORPUSCULAR HEMOGLOBIN 28.2 pg (27.0-31.0); MEAN CORPUSCULAR HGB CONC 33.5 g/dL (33.0-37.0); MEAN PLATELET VOLUME 8.7 fl (7.2-11.7); MONO # 0.9 K/uL (0.0-0.8); MONO % 7.2 % (0.0-10.0); NEUT # 10.5 K/uL (1.8-7.0); NEUT % 87.1 % (50.0-75.0); NRBC % 0.1 % (0.0-0.0); PLATELET COUNT 173 K/uL (130-400); RBC 4.08 Mil/uL (4.40-5.90); RED CELL DISTRIBUTION WIDTH 14.3 % (11.5-14.5)
[2018-05-08 14:04] LABS: ALB/GLOB RATIO 0.9 (1.0-2.1); ALBUMIN 4.1 g/dL (3.5-5.0); ALT/SGPT 19 U/L (21-72); AMYLASE 47 U/L (30-110); AST/SGOT 22 U/L (17-59); BLOOD UREA NITROGEN 15 mg/dl (9-20); CALCIUM 10.1 mg/dL (8.4-10.2); GFR NON-AFRICAN AMERICAN > 60; LIPASE 11 U/L (23-300)
--- NOTE | 2018-05-08 14:16 | US ---
Date of service: 05/08/2018 HISTORY: abd pain, h/o pancreatitis COMPARISON: CT scan of the abdomen pelvis dated 02/12/2018. TECHNIQUE: Sonographic evaluation of the abdomen. FINDINGS: LIVER: Measures 15.5 cm. Normal echogenicity of the liver parenchyma. No mass. No intrahepatic bile duct dilatation. Dilated main portal vein with normal directional flow. GALLBLADDER: Unremarkable. No gallstones. COMMON BILE DUCT: Measures 5 mm. No stones. No dilatation. PANCREAS: Hypoechoic mass redemonstrated in the pancreatic tail measuring 4.7 x 5.4 cm. No ductal dilatation. RIGHT KIDNEY: Measures 10.7 x 5.6 x 5.4cm. Normal echogenicity. No calculus, mass, or hydronephrosis. LEFT KIDNEY: Measures 10.1 x 4.5 x 4.6cm. Normal echogenicity. No calculus, mass, or hydronephrosis. SPLEEN: Enlarged measuring 13.4 cm. AORTA: No aneurysmal dilatation. IVC: Unremarkable. OTHER FINDINGS: None. IMPRESSION: Dilated main portal vein with splenomegaly may reflect underlying portal hypertension. Portal venous flow was hepatopetal at the time of examination. Redemonstration of low-density mass in the pancreatic tail.
[2018-05-08 14:43] LABS: BANDS 6 % (0-2); LYMPHOCYTE 5 % (20-50); MONOCYTE 6 % (0-10); NEUTROPHIL 83 % (42-75); PLATELET ESTIMATE NORMAL (NORMAL); TOTAL CELLS COUNTED 100
[2018-05-08 14:44] LABS: HYPOCHROMIC SLIGHT
[2018-05-08 15:19] VITALS: BP 142/82; PULSE 78; RESP 16; TEMP 98
== END 2018-05-08 15:10 | disposition home or self-care (01) ==
LOC: H.ER 11:45
DX: R10.9 Unspecified abdominal pain (principal); K86.81 Exocrine pancreatic insufficiency; I10 Essential (primary) hypertension; E78.00 Pure hypercholesterolemia, unspecified
CPT/HCPCS: 76700; 80053; 82150; 83690; 85025; 96361; 96374; 96375; 99283; J2405; J7030